=== PATIENT | male | born 1940 | race Caucasian/White ===

== ENCOUNTER 2023-07-25 13:56 | Inpatient (IN) ==
--- NOTE | 2023-07-25 14:19 | Emergency Department Note ---
ED Provider Note History of Present Illness Chief Complaint: Hip Pain Time Seen by Provider: 07/25/23 14:12 Source: patient Mode of arrival: EMS Limitations: no limitations This patient is an 83-year-old male who presents to the emergency department via ambulance for evaluation of an injury to his left hip. Patient reports that he was outside and tripped over a piece of wood and fell, landing on his left hip. He reports left hip pain and states he cannot walk on the leg. He does state that he struck his head but denies any head pain. Denies any other injuries. States that the fall was mechanical and not associated with any lightheadedness or dizziness. Denies any medical issues or history of orthopedic surgeries. He rates his current pain a 5/10. Home Medications Medication Instructions Recorded Confirmed Type simvastatin 80 mg tablet 80 mg PO DAILY 12/31/21 07/25/23 History tadalafil 20 mg tablet 20 mg PO DAILY PRN sexual activity 05/05/22 07/25/23 Rx #10 tabs Allergies Allergy/AdvReac Type Severity Reaction Status Date / Time No Known Allergies Allergy Unknown Verified 07/25/23 15:47 Past Med/Surg History Medical History Cervical spondylosis Stiff neck Cervical facet joint syndrome History of COVID-19 (06/2020) JUN 2020 Osteoarthritis Hyperlipidemia Surgical History H/O carpal tunnel repair R wrist History of cataract surgery BILAT Hx of inguinal hernia surgery (06/21/19) Right Open Recurrent Indirect Inguinal Hernia Repair with Mesh; Excision of Lipoma of the Cord Dr. Ham 06-21-19 History of tooth extraction History of tonsillectomy Family History Sister Colorectal cancer, Onset Age: 78 Brother Cancer Son Kidney disease Diabetes Father No problems noted. Mother No problems noted. Other Breast cancer Denies family history of Ovarian cancer Prostate cancer Myocardial infarction Social History Smoking Status: Never smoker Tobacco Type: Smokeless Tobacco (Dip or Chew) Age Started Using Tobacco: 14; Age Quit Using Tobacco: 28; Second Hand Exposure: No; Do You Dip or Chew Tobacco: No; Tobacco Cessation Education Requested by Patient: No Hx Alcohol Use: No Hx Substance Use: No Preferred Language: Latvian Communication Ability: Effective Visual Impairment: Limited Hearing Ability: Hard of Hearing Electrocardiograph Operator Required: No Beliefs That Will Affect Care: None marital status: / marital status details: previous passed around 2016 Current Living Situation: Spouse Current Living Situation Comment: Lives at home with current occupational status: retired current occupation: Owns [employer] How many Children do You have Comment: -not with current spouse Other Information That Helps Us Care for You: No Feels Safe at Home: Yes Safety Concerns: Feels Safe At This Time Childhood Exposure to Second-Hand Smoke: No Diet: regular Diet Comment: eats healthy, likes sweets caffeine: Yes (3 cups of coffee per day) during the past year weight has: remained stable Dental Care, Regularly: Yes Physical Activity Frequency: Daily Physical Activity Frequency Comment: has a garden, owns a [employer] Seatbelt Use: always Sunscreen Use: Yes Assistive Devices: Cane, Glasses and Walker Physical Exam Vital Signs Vital Signs - 24 hr 07/25/23 14:12 Temperature 36.6 C Temperature Source Temporal Artery Scan Pulse Rate 53 L Respiratory Rate 20 Respiratory Effort / Characteristics Non-Labored Respiratory Depth Normal Blood Pressure 124/88 Blood Pressure Mean 100 Pulse Oximetry 99 Oxygen Delivery Method Room Air Sepsis Recent Fever Within 48 Hours No Sepsis New/Unexplained Change in Mental Status No Sepsis Action Taken by Nursing No Action Required VITALS: Vitals are noted on the nurse's note and reviewed by myself. GENERAL: This is an 83-year-old male, in no acute distress, lying supine in bed, well-developed well-nourished. SKIN: No lacerations or abrasions HEAD: Normocephalic atraumatic. EYES: Pupils equal round and reactive to light and accommodation. Extraocular movements intact. MOUTH: Mucous membranes moist. NECK: Supple without nuchal rigidity. Cervical spine is nontender. HEART: Regular rate and rhythm without murmurs gallops or rubs. LUNGS: Clear to auscultation bilaterally without wheezes, rales or rhonchi. ABDOMEN: Positive bowel sounds x 4. Soft, nontender to palpation. MUSCULOSKELETAL: Slight shortening and external rotation of the left leg compared to the right. Tenderness to palpation of the lateral left hip. NEURO: Patient was alert and oriented to person place and time. Distal sensation intact of the left lower extremity. Course Administered Medications Fentanyl Citrate (Fentanyl Citrate Pf 100 Mcg/2 Ml Vial) 25 mcg IV Q5M PRN PRN Reason: PACU Use Only-Pain Stop: 07/26/23 23:37 Last Admin: 07/26/23 17:10 Dose: 25 mcg Documented By: Admin: 07/26/23 17:05 Dose: 25 mcg Documented By: Admin: 07/26/23 17:00 Dose: 25 mcg Documented By: Admin: 07/26/23 16:55 Dose: 25 mcg Documented By: MILADIS Hydromorphone HCl (Hydromorphone Inj 0.5 Mg/0.5 Ml Syr) 0.5 mg IV Q3H PRN PRN Reason: Pain (6,7,8,9,10) Stop: 08/08/23 20:21 Last Admin: 07/26/23 01:39 Dose: 0.5 mg Documented By: SOFIA Acetaminophen (Ofirmev) 1,000 mg in 100 mls @ 400 mls/hr IV Q8H PRN PRN Reason: pain, first line Stop: 07/28/23 20:21 Last Infusion: 07/26/23 01:00 Dose: Infused Documented By: Admin: 07/26/23 00:38 Dose: 400 mls/hr Documented By: SOFIA Lactated Ringer's (Lr) 1,000 mls @ 80 mls/hr IV .[id number] [facility] Stop: 07/26/23 21:21 Last Infusion: 07/26/23 19:53 Dose: Infused Documented By: Admin: 07/26/23 09:05 Dose: 80 mls/hr Documented By: Infusion: 07/26/23 09:05 Dose: Infused Documented By: Admin: 07/25/23 20:43 Dose: 80 mls/hr Documented By: SOFIA Sodium Chloride (Nss) 1,000 mls @ 80 mls/hr IV .[id number] [facility] Stop: 07/27/23 18:34 Last Admin: 07/26/23 17:44 Dose: 80 mls/hr Documented By: DK Discontinued Medications Acetaminophen (Acetaminophen 500 Mg Tab) 500 mg PO NOW STA Stop: 07/25/23 18:01 Last Admin: 07/25/23 18:38 Dose: 500 mg Documented By: CYRUS Bupivacaine HCl/Epinephrine Bitart (Bupivacaine/Epinephrine 0.5% Mpf 1:200,000 30 Ml Vial) Confirm Administered Dose 60 ml .ROUTE .STK-MED ONE Stop: 07/26/23 14:47 Last Admin: 07/26/23 16:19 Dose: 30 ml Documented By: KAREL Cefazolin Sodium (Ancef 2000mg) 2,000 mg in 15 mls @ 3.75 mls/min IV PREOP ONE; Protocol Stop: 07/26/23 14:21 Last Admin: 07/26/23 15:13 Dose: 3.75 mls/min Documented By: YANET Tranexamic Acid (Tranexamic Acid / 0.7% Nacl 1000mg/100ml Bag) Confirm Administered Dose 1,000 mg IV .STK-MED ONE Stop: 07/26/23 15:17 Last Admin: 07/26/23 15:19 Dose: 1,000 mg Documented By: YANET Medical Decision Making Differential Diagnosis Fracture, dislocation, neurovascular compromise, compartment syndrome, soft tissue injury, as well as other pathologies. Home Medications was personally reviewed by me Laboratory Data Attestation: I reviewed the patient's lab results. 07/26/23 07:16 07/26/23 07:16 Lab Results 07/25/23 07/25/23 Range/Units 14:30 15:05 WBC 10.35 (4.8-10.8) K/ul RBC 3.93 L (4.70-6.10) M/uL Hgb 12.9 L (14.0-18.0) g/dl Hct 37.8 L (42.0-52.0) % MCV 96.2 (80.0-100.0) fL MCH 32.8 (25.0-34.0) pg MCHC 34.1 (32.0-36.0) g/dL RDW Std Deviation 43.3 (36.4-46.3) fL RDW Coeff of Clarke 12.1 (11.5-14.5) % Plt Count 154 (130-400) K/uL MPV 10.4 (9.4-12.4) fL Immature Gran % (Auto) 0.3 % Neut % (Auto) 80.1 % Lymph % (Auto) 12.1 % Sharp % (Auto) 6.7 % Eos % (Auto) 0.2 % Baso % (Auto) 0.6 % Neut # (Auto) 8.30 H (1.40-6.50) K/uL Lymph # (Auto) 1.25 (1.20-3.40) K/uL Sharp # (Auto) 0.69 H (0.11-0.59) K/uL Eos # (Auto) 0.02 (0.00-0.50) K/uL Baso # (Auto) 0.06 (0.00-0.20) K/uL Immature Gran # (Auto) 0.03 (0.01-0.20) K/uL PT 10.9 (9.0-12.0) Seconds INR 1.0 (0.9-1.1) APTT 20 L (21-31) Seconds PTT Ratio 0.7 Sodium 137 (136-145) mmol/L Potassium 4.0 (3.5-5.1) mmol/L Chloride 102 (98-107) mmol/L Carbon Dioxide 28 (21-32) mmol/L Anion Gap 7 (3-11) BUN 19 (6-23) mg/dl Creatinine 0.71 (0.6-1.4) mg/dl Est Cr Clr Drug Dosing 78.5 ml/min Est GFR ( Amer) 99.2 ml/min Est GFR (Non-Af Amer) 85.6 ml/min BUN/Creatinine Ratio 26.8 H (10-20) Glucose 123 H (70-99(Fasting)) mg/dl Calcium 9.4 (8.6-10.3) mg/dl Total Bilirubin 0.6 (0.2-1.0) mg/dl AST 29 (13-39) U/L ALT 17 (7-52) U/L Alkaline Phosphatase 74 (34-104) U/L Total Protein 7.1 (6.0-8.3) gm/dl Albumin 4.2 (3.4-5.0) gm/dl Globulin 2.9 (2.5-4.0) gm/dl Albumin/Globulin Ratio 1.4 (0.9-2) Urine Color Yellow Urine Appearance Clear (Clear) Urine pH 7.0 (4.5-7.5) Ur Specific [place] 1.012 (1.000-1.030) Urine Protein Negative (Negative) Urine Glucose (UA) Negative (Negative) Urine Ketones Negative (Negative) Urine Blood Trace H (Negative) Urine Nitrite Negative (Negative) Urine Bilirubin Negative (Negative) Urine Urobilinogen Negative (Negative) Ur Leukocyte Esterase Negative (Negative) Urine WBC (Auto) 1-5 (0-5) /hpf Urine RBC (Auto) 0-4 (0-4) /hpf U Hyaline Cast (Auto) 0 (0-5) /lpf U Epithel Cells (Auto) 10-20 H (0-5) /lpf Urine Bacteria (Auto) Negative (Negative) Imaging Data Attestation: I personally reviewed and interpreted this imaging study as follows: Radiologist's Impression: Cervical Spine CT 07/25/23 14:17 CT cervical spine wo con CLINICAL HISTORY: fall, head injury TECHNIQUE: Multidetector row helical CT of the cervical spine was performed without administration of intravenous contrast. Coronal and sagittal reformations were obtained. Automated dose lowering techniques and/or adjustment according to patient size were utilized for this exam. Comparison: None available at the time of this dictation. FINDINGS: No acute fractures or subluxations are identified. Degenerative changes are seen in the visualized spine. The alignment is normal. Soft tissues are unremarkable. IMPRESSION: Degenerative changes without evidence of acute bony injury. ACT 112: Negative or not required by law. Electronically signed by: Lalo Guerrero M.D. 07/25/2023 2:[address] 07/25/23 14:17 CT head/brain wo con CLINICAL HISTORY: 83 years-old Male with fall, head injury. Acute head trauma status post fall TECHNIQUE: Multiple axial CT images of the head were obtained without contrast. A dose lowering technique was utilized adhering to the principles of ALARA. COMPARISON: CT cervical spine of same day FINDINGS: No acute intracranial hemorrhage, midline shift, intracranial mass, acute territorial ischemia or abnormal extra-axial collection. Involutional changes with chronic microvascular ischemic disease. Ventriculomegaly. Motion degraded exam. The calvarium is intact. Prior bilateral lens repair. Metallic density focus overlies the left mid humerus on the asphalt tile floor layer radiograph. The paranasal sinuses, mastoid air cells, and middle ear cavities are clear. IMPRESSION: No acute intracranial abnormality. ACT 112: Negative or not required by law. The above report was generated using voice recognition software. It may contain grammatical, syntax or spelling errors. Electronically signed by: Abebe Cedillo M.D. 07/25/2023 3:08 PM Hip X-Ray 07/25/23 14:17 XR hip LT min 2V CLINICAL HISTORY: left hip injury, fall COMPARISON: None FINDINGS: Note is made of an acute displaced left femoral neck fracture. Fracture is displaced approximately 1.5 cm. There is mild left hip osteoarthritis. No additional acute fractures are identified. IMPRESSION: Acute displaced left femoral neck fracture. ACT 112: Negative or not required by law. Electronically signed by: Godwin Marquez M.D. 07/25/2023 3:16 PM ECG Data Attestation: I personally reviewed and interpreted this ECG as follows: Indication: + other (preop) Rate (beats per minute): 57 Rhythm: + sinus bradycardia ECG Intervals/blocks: + First degree AV block ECG ST segments: + Nonspecific ST abnormalities MDM Narrative Continuous monitoring manager: Order was placed for continuous monitoring manager. Patient was placed on the monitoring manager. Patient was noted to be in normal sinus rhythm at an initial rate of 70 bpm. This patient is an 83-year-old male who presents to the emergency department for evaluation after a mechanical fall. Patient was found to have a femoral neck fracture. He declined any analgesics while in the emergency department. Further preoperative workup was ordered. Attempted to contact on-call orthopedics, however I was unable to reach anyone as they were in the OR. I discussed the case with the [facility], who agreed to evaluate the patient for admission. They were able to discuss with orthopedics on-call as well. The patient's case was discussed with Dr. Cherry, who agreed with my evaluation and treatment plan. Impression Fracture of femoral neck, left Discharge Plan Visit Data Chief Complaint: Hip Pain ED Provider: Robi Cherry ED Midlevel Provider: Carmen Khan Discharge Problem: Fracture of femoral neck, left Patient Disposition: Admitted As Inpatient Discharge Instructions Interventions: ED Discharge Assessment Last Done: 07/25/23 20:25 Discharge Problem: Fracture of femoral neck, left Qualifiers: Encounter type: initial encounter Fracture type: closed Qualified Code(s): S 72.002A - Fracture of unspecified part of neck of left femur, initial encounter for closed fracture
[2023-07-25 14:47] LABS: Basophils # (auto) 0.06 K/uL (0.00-0.20); Basophils % (auto) 0.6 %; Eosinophils # (auto) 0.02 K/uL (0.00-0.50); Eosinophils % (auto) 0.2 %; Hematocrit (blood only) 37.8 % (42.0-52.0); Hemoglobin 12.9 g/dl (14.0-18.0); Immature Granulocytes # (auto) 0.03 K/uL (0.01-0.20); Immature Granulocytes % (auto) 0.3 %; Lymphocytes # (auto) 1.25 K/uL (1.20-3.40); Lymphocytes % (auto) 12.1 %; Mean Corpuscular Hemoglobin 32.8 pg (25.0-34.0); Mean Corpuscular Hgb Conc 34.1 g/dL (32.0-36.0); Mean Corpuscular Volume 96.2 fL (80.0-100.0); Mean Platelet Volume 10.4 fL (9.4-12.4); Monocytes # (auto) 0.69 K/uL (0.11-0.59); Monocytes % (auto) 6.7 %; Neutrophils % (auto) 80.1 %; Platelet Count 154 K/uL (130-400); RDW Coefficient of Variation 12.1 % (11.5-14.5); RDW Standard Deviation 43.3 fL (36.4-46.3); Red Blood Count 3.93 M/uL (4.70-6.10); White Blood Count 10.35 K/ul (4.8-10.8)
--- NOTE | 2023-07-25 15:00 | CT Scan Report ---
CT cervical spine wo con CLINICAL HISTORY: fall, head injury TECHNIQUE: Multidetector row helical CT of the cervical spine was performed without administration of intravenous contrast. Coronal and sagittal reformations were obtained. Automated dose lowering techn iques and/or adjustment according to patient size were utilized for this exam. Comparison: None available at the time of this dictation. FINDINGS: No acute fractures or subluxations are identified. Degenerative changes are seen in the visualized sp ine. The alignment is normal. Soft tissues are unremarkable. IMPRESSION: Degenerative changes without evidence of acute bony injury. ACT 112: Negative or not required by law. Electronically signed by: Lalo Guerrero M.D. 07/25/2023 2:59 PM
[2023-07-25 15:04] LABS: Albumin Globulin Ratio 1.4 (0.9-2); Albumin Level 4.2 gm/dl (3.4-5.0); BUN Creatinine Ratio 26.8 (10-20); Bilirubin,Total 0.6 mg/dl (0.2-1.0); Calcium 9.4 mg/dl (8.6-10.3); Creatinine Clr Calc Pharmacy 78.5 ml/min; Est GFR (African American) 99.2 ml/min; Est GFR (Non-African American) 85.6 ml/min; Globulin 2.9 gm/dl (2.5-4.0); Total Protein 7.1 gm/dl (6.0-8.3)
--- NOTE | 2023-07-25 15:09 | CT Scan Report ---
CT head/brain wo con CLINICAL HISTORY: 83 years-old Male with fall, head injury. Acute head trauma status post fall TECHNIQUE: Multiple axial CT images of the head were obtained without contrast. A dose lowering tech nique was utilized adhering to the principles of ALARA. COMPARISON: CT cervical spine of same day FINDINGS: No acute intracranial hemorrhage, midline shift, intracranial mass, acute territorial ischemia or abn ormal extra-axial collection. Involutional changes with chronic microvascular ischemic disease. Ventr iculomegaly. Motion degraded exam. The calvarium is intact. Prior bilateral lens repair. Metallic density focus overlies the left mid hu merus on the rehabilitation tech radiograph. The paranasal sinuses, mastoid air cells, and middle ear cavities are clear. IMPRESSION: No acute intracranial abnormality. ACT 112: Negative or not required by law. The above report was generated using voice recognition software. It may contain grammatical, syntax o r spelling errors. Electronically signed by: Abebe Cedillo M.D. 07/25/2023 3:08 PM
[2023-07-25 15:13] LABS: Partial Thromboplastin Ratio 0.7; Partial Thromboplastin Time 20 Seconds (21-31); Prothrombin Time 10.9 Seconds (9.0-12.0)
--- NOTE | 2023-07-25 15:15 | Emergency Department Note ---
ED Visit Note I was consulted by the Advanced Practice Provider, Nancie Khan PA-C. I personally made/approved the management plan and take responsibility for the patient management. I performed a substantive portion of the visit. This includes the aspects of: -History/Physical/Personally seeing the patient -MDM -I independently interpreted the following studies: X-ray of the left hip was obtained in the emergency department. My interpretation is subcapital fracture, final report in the chart. .
--- NOTE | 2023-07-25 15:17 | XRay Report ---
XR hip LT min 2V CLINICAL HISTORY: left hip injury, fall COMPARISON: None FINDINGS: Note is made of an acute displaced left femoral neck fracture. Fracture is displaced appro ximately 1.5 cm. There is mild left hip osteoarthritis. No additional acute fractures are identified. IMPRESSION: Acute displaced left femoral neck fracture. ACT 112: Negative or not required by law. Electronically signed by: Godwin Marquez M.D. 07/25/2023 3:16 PM
[2023-07-25 15:21] LABS: Appearance Urine Clear (Clear); Bacteria Urine Automated Negative (Negative); Bilirubin Urine Negative (Negative); Blood Urine Trace (Negative); Cast Urine Automated 0 /lpf (0-5); Color Urine Yellow; Glucose Urine UA Negative (Negative); Ketones Urine Negative (Negative); Leukocyte Esterase Urine Negative (Negative); Nitrite Urine Negative (Negative); Protein Urine Negative (Negative); RBC Urine Automated 0-4 /hpf (0-4); Specific Gravity Urine 1.012 (1.000-1.030); Urobilinogen Urine Negative (Negative)
--- NOTE | 2023-07-25 16:17 | History & Physical Report ---
Date of Service July 25, 2023 Assessment & Plan (1) Closed left hip fracture: Plan: Left hip fracture Ortho consulted Mechanical fall, no syncope/presyncope/cardiac arrhythmia contributing to his fall Patient is not on blood thinners Nonweightbearing/bedrest pending surgery N.p.o. CThead was negative, CTC-spine negative No history of CHF, no volume overload, no pretreat with insulin, renal function is normal and at baseline at time of admission. RCRI class I risk 3.9% 30-day risk of /MT/arrest; no optimize blood risk factors at this time. Recommend proceeding to surgical repair as recommended/clinically indicated -Marks in place draining light yellow urine. IV FM 80 cc/h Tylenol first-line for pain control, hydromorphone second-line/breakthrough. Narcan available on-call for sedation/narcosis Plan Chronic stable issues Hyperlipidemia: Continue statin DVT prophylaxis: SCDs, pharmacal prophylaxis deferred in the setting of an acute fracture Diet: N.p.o. Disposition: Medical/surgical CODE STATUS:DNR/DNI History of Present Illness Primary Care Provider: Diana Robin DO Freddy is an 83-year-old male with past medical history of cervical spondylosis, osteoarthritis, and hyperlipidemia who presented to the ER after he tripped over a piece of wood causing him to strike his left hip with immediate pain and inability to bear weight. No chest pain, chest pressure, syncope, or presyncope that caused him to fall. Head/neck CT are normal he did not lose consciousness. Hip x-ray shows a acute displaced left femoral neck fracture with 1.5 cm of displacement. Freddy is seen at the bedside. He reports he slipped over a piece of wood and fell striking his left hip and the side of his left head. He has no headache and did not lose consciousness. He is not on blood thinners. He reports other than high cholesterol for which she takes a cholesterol medicine he has no medical problems. No history of heart disease or angina, and is normally active without any chest pain or shortness of breath. No history of tobacco or alcohol use. No kidney disease. He has not had any lightheadedness/dizziness/syncopal/presyncopal symptoms. He reports his pain is around a 5/10 at time of bedside assessment, tolerable at rest but has immediate pain with any attempted movement. Reviewed resuscitation with patient and his ; patient reports that in the event of a complete cardiac or pulmonary arrest he would not want resuscitation and would prefer to be DNR/DNI status but is aware that this may be temporarily reversed intraoperatively. No other questions or concerns at bedside Denies medication allergies, no substance use, DNR/DNI. Admitted to medical/ surgical Allergies Allergy/AdvReac Type Severity Reaction Status Date / Time No Known Allergies Allergy Unknown Verified 07/25/23 15:47 Home Medications Medication Instructions Recorded Confirmed Type simvastatin 80 mg tablet 80 mg PO DAILY 12/31/21 07/25/23 History tadalafil 20 mg tablet 20 mg PO DAILY PRN sexual activity 05/05/22 07/25/23 Rx #10 tabs Past Med/Surg History Medical History Cervical spondylosis Stiff neck Cervical facet joint syndrome History of COVID-19 (06/2020) JUN 2020 Osteoarthritis Hyperlipidemia Surgical History H/O carpal tunnel repair R wrist History of cataract surgery BILAT Hx of inguinal hernia surgery (06/21/19) Right Open Recurrent Indirect Inguinal Hernia Repair with Mesh; Excision of Lipoma of the Cord Dr. Ham 06-21-19 History of tooth extraction History of tonsillectomy Family History Sister Colorectal cancer, Onset Age: 78 Brother Cancer Son Kidney disease Diabetes Father No problems noted. Mother No problems noted. Other Breast cancer Denies family history of Ovarian cancer Prostate cancer Myocardial infarction Social History Smoking Status: Never smoker Tobacco Type: Smokeless Tobacco (Dip or Chew) Age Started Using Tobacco: 14; Age Quit Using Tobacco: 28; Second Hand Exposure: No; Do You Dip or Chew Tobacco: No; Hx Alcohol Use: No Hx Substance Use: No Preferred Language: Faroese Communication Ability: Effective Visual Impairment: Limited Hearing Ability: Hard of Hearing Cobbler Mckay Required: No Beliefs That Will Affect Care: None marital status: / marital status details: previous passed around 2016 Current Living Situation: Spouse Current Living Situation Comment: lives w/ spouse current occupational status: retired current occupation: Owns [employer] How many Children do You have Comment: -not with current spouse Feels Safe at Home: Yes Childhood Exposure to Second-Hand Smoke: No Diet: regular Diet Comment: eats healthy, likes sweets caffeine: Yes (3 cups of coffee per day) during the past year weight has: remained stable Dental Care, Regularly: Yes Physical Activity Frequency: Daily Physical Activity Frequency Comment: has a garden, owns a [employer] Seatbelt Use: always Sunscreen Use: Yes Assistive Devices: Glasses Physical Exam Physical Exam: General: A&Ox3. NAD. Cooperative. HEENT: Atraumatic, normocephalic. Vision/hearing intact pupils equal and reactive to light Pulm: CTAB A&P. -wheezes, -rales, -rhonchi. Symmetrical chest rise. No increased work of breathing. No respiratory distress. Cardiac: RRR, intermittently bradycardic at rest,-mrg. Radial pulses intact and symmetrical. Abdominal: Nontender, nondistended, soft. BS present. : Marks in place Ext: Left hip slightly externally rotated and shortened. Tender palpation at the left hip. Sensation soft touch in feet intact bilaterally without asymmetry, PT pulse intact bilaterally without asymmetry, ankle dorsiflexion/plantarflexion is intact bilaterally. No signs of neurovascular compromise Results & Data Results & Data Vital Signs (Past 12 Hours) Vital Signs Temp Pulse Resp BP Pulse Ox O2 Del Method 07/25/23 14:12 36.6 C 53 L 20 124/88 99 Room Air PG Care Time/CCT Total # of Minutes Spent Total Time Spent with Patient: Total time spent is greater than 50% in coordination of care (as documented) at patient's floor/unit and/or counseling patient: Coding Level of Care Code 97247 INT INP/OBS CARE 2MIN Diagnoses Closed left hip fracture S72.002A
--- NOTE | 2023-07-25 16:44 | Electrocardiogram Report ---
Test Reason : Blood Pressure : / mmHG Vent. Rate : 057 BPM Atrial Rate : 057 BPM P-R Int : 220 ms QRS Dur : 118 ms QT Int : 464 ms P-R-T Axes : 063 -24 063 degrees QTc Int : 451 ms Sinus bradycardia with 1st degree A-V block Non-specific intra-ventricular conduction delay Minimal voltage criteria for LVH, may be normal variant Nonspecific ST and T wave abnormality Abnormal ECG When compared with ECG of 12-JAN-2021 13:47, Nonspecific T wave abnormality, worse in Lateral leads Confirmed by Jerod Hermosillo ([id number]) on 07/25/2023 4:43:37 PM Referred By: Confirmed By:James Hermosillo
[2023-07-25] MEDS ORDERED: ACETAMINOPHEN 500 MG TAB PO STA (18:00)
[2023-07-25] MEDS ORDERED: ACETAMINOPHEN 1,000 MG/100 ML VIAL IV PRN (20:22)
[2023-07-25] MEDS ORDERED: MAGNESIUM HYDROXIDE SUSP 30 ML UDC PO PRN (20:22)
[2023-07-25] MEDS ORDERED: bisacodyL 10 MG SUPP PR PRN (20:22)
[2023-07-25] MEDS ORDERED: HYDROmorphone INJ 0.5 MG/0.5 ML SYR IV PRN (20:22)
[2023-07-25] MEDS ORDERED: NALOXONE HCL 0.4 MG/1 ML VIAL/CARP IV PRN (20:22)
[2023-07-25] MEDS: LACTATED RINGER'S 1,000 ML IV SCH (20:43)
[2023-07-26] MEDS: HYDROmorphone INJ 0.5 MG/0.5 ML SYR IV PRN (01:39)
[2023-07-26 08:03] LABS: BUN Creatinine Ratio 21.4 (10-20); Creatinine Clr Calc Pharmacy 79.7 ml/min; Est GFR (African American) 99.7 ml/min; Est GFR (Non-African American) 86.1 ml/min; Potassium 3.8 mmol/L (3.5-5.1)
[2023-07-26 08:15] LABS: Basophils # (auto) 0.04 K/uL (0.00-0.20); Basophils % (auto) 0.5 %; Eosinophils # (auto) 0.01 K/uL (0.00-0.50); Eosinophils % (auto) 0.1 %; Hematocrit (blood only) 33.1 % (42.0-52.0); Hemoglobin 11.6 g/dl (14.0-18.0); Immature Granulocytes # (auto) 0.02 K/uL (0.01-0.20); Immature Granulocytes % (auto) 0.3 %; Lymphocytes # (auto) 1.89 K/uL (1.20-3.40); Lymphocytes % (auto) 24.3 %; Mean Corpuscular Hemoglobin 32.6 pg (25.0-34.0); Mean Platelet Volume 10.7 fL (9.4-12.4); Monocytes # (auto) 0.87 K/uL (0.11-0.59); Monocytes % (auto) 11.2 %; Neutrophils # (auto) 4.95 K/uL (1.40-6.50); Neutrophils % (auto) 63.6 %; Platelet Count 132 K/uL (130-400); RDW Coefficient of Variation 12.2 % (11.5-14.5); RDW Standard Deviation 42.1 fL (36.4-46.3); Red Blood Count 3.56 M/uL (4.70-6.10); White Blood Count 7.78 K/ul (4.8-10.8)
--- NOTE | 2023-07-26 08:51 | Hospitalist Progress Note ---
Date of Service July 26, 2023 Assessment & Plan (1) Closed left hip fracture: Plan: Mechanical fall, no syncope/presyncope/cardiac arrhythmia contributing to his fall as tripped over wood trying to get for heating his home. CT head/cervical spine negative Imaging noting acute displaced LEFT femoral neck fracture. * No history of CHF, no volume overload, no pretreat with insulin, renal function is normal and at baseline at time of admission. RCRI class I risk 3.9% 30-day risk of /PA/arrest; no optimize blood risk factors at this time. Recommend proceeding to surgical repair as recommended/clinically indicated Orthopedics consulted NPO this morning for surgery this afternoon IVF while NPO for maintenance Dykes in place Pain control, antiemetics prn -Tylenol, Dilaudid available. Will ensure PO option available following s urgery/able to take PO Bowel regimen to be added following surgery DVT proph: SCDs for now, no chemo proph as planning for surgery this afternoon. Chemoproph following per orthopedic decision Monitor labs in AM PT/OT evals to be undertaken, likely need for short term rehab Chronic problems Hyperlipidemia -will resume statin for AM - takes lipitor 80mg daily Plan CODE STATUS:DNR/DNI NPO for OR this afternoon, therapy evals following Admission and Anticipated Discharge Date Admission Date: July 25, 2023 Supervising Physician Co-Signing Physician Notes The patient was not seen by me. The chart was reviewed. Case discussed with MACKENZIE Kenyon. Agree with assessment and plan Subjective Eval this morning, fell tripping over wood as he was bringing it in, didn't see the one piece. Saw orthopedics this morning, planning for surgery. Pain controlled at present time. No fever/chills, chest pain, shortness of breath. Discussed obtaining therapy evaluations after surgery and will monitor progress to see if any rehab required. Questions/concerns addressed at this time. Physical Exam Physical Exam: General: 83yo male resting in bed, at bedside, NAD, reports seen by orthopedics this morning Head: atraumatic, normocephalic, mmm, trachea midline Resp: even, unlabored, no w/c/r, on room air CV: RRR/slightly bradycardic to 50s, no significant mrg, no pitting edema/calf tenderness, cap refill wnl GI: +BS, soft/NT : dykes in place MSK/Neuro: LLE hip w/ external rotation, slightly shortened, tenderness to palpation L hip, sensation intact, pulses palpable, cap refill wnl abrasion to medial aspect L knee, no surrounding erythema/cellulitis Psych: AOx3, cooperative with exam Results & Data Results & Data Vital Signs (Past 12 Hours) Vital Signs Temp Pulse Resp BP BP Pulse Ox O2 Del Method 07/26/23 07:43 36.7 C 62 15 115/73 96 Room Air 07/26/23 07:33 36.7 C 51 L 15 153/71 H 97 Room Air Laboratory Results 07/26/23 07/25/23 07/25/23 Range/Units 07:16 20:15 15:05 WBC 7.78 (4.8-10.8) K/ul RBC 3.56 L (4.70-6.10) M/uL Hgb 11.6 L (14.0-18.0) g/dl Hct 33.1 L (42.0-52.0) % MCV 93.0 (80.0-100.0) fL MCH 32.6 (25.0-34.0) pg MCHC 35.0 (32.0-36.0) g/dL RDW Std Deviation 42.1 (36.4-46.3) fL RDW Coeff of Clarke 12.2 (11.5-14.5) % Plt Count 132 (130-400) K/uL MPV 10.7 (9.4-12.4) fL Immature Gran % (Auto) 0.3 % Neut % (Auto) 63.6 % Lymph % (Auto) 24.3 % Hanson % (Auto) 11.2 % Eos % (Auto) 0.1 % Baso % (Auto) 0.5 % Neut # (Auto) 4.95 (1.40-6.50) K/uL Lymph # (Auto) 1.89 (1.20-3.40) K/uL Hanson # (Auto) 0.87 H (0.11-0.59) K/uL Eos # (Auto) 0.01 (0.00-0.50) K/uL Baso # (Auto) 0.04 (0.00-0.20) K/uL Immature Gran # (Auto) 0.02 (0.01-0.20) K/uL PT (9.0-12.0) Seconds INR (0.9-1.1) APTT (21-31) Seconds PTT Ratio Sodium 133 L (136-145) mmol/L Potassium 3.8 (3.5-5.1) mmol/L Chloride 101 (98-107) mmol/L Carbon Dioxide 27 (21-32) mmol/L Anion Gap 5 (3-11) BUN 15 (6-23) mg/dl Creatinine 0.70 (0.6-1.4) mg/dl Est Cr Clr Drug Dosing 79.7 ml/min Est GFR ( Amer) 99.7 ml/min Est GFR (Non-Af Amer) 86.1 ml/min BUN/Creatinine Ratio 21.4 H (10-20) Glucose 107 H (70-99(Fasting)) mg/dl Calcium 9.0 (8.6-10.3) mg/dl Total Bilirubin (0.2-1.0) mg/dl AST (13-39) U/L ALT (7-52) U/L Alkaline Phosphatase (34-104) U/L Total Protein (6.0-8.3) gm/dl Albumin (3.4-5.0) gm/dl Globulin (2.5-4.0) gm/dl Albumin/Globulin Ratio (0.9-2) Urine Color Yellow Urine Appearance Clear (Clear) Urine pH 7.0 (4.5-7.5) Ur Specific Ridgeley 1.012 (1.000-1.030) Urine Protein Negative (Negative) Urine Glucose (UA) Negative (Negative) Urine Ketones Negative (Negative) Urine Blood Trace H (Negative) Urine Nitrite Negative (Negative) Urine Bilirubin Negative (Negative) Urine Urobilinogen Negative (Negative) Ur Leukocyte Esterase Negative (Negative) Urine WBC (Auto) 1-5 (0-5) /hpf Urine RBC (Auto) 0-4 (0-4) /hpf U Hyaline Cast (Auto) 0 (0-5) /lpf U Epithel Cells (Auto) 10-20 H (0-5) /lpf Urine Bacteria (Auto) Negative (Negative) Blood Type A Negative Antibody Screen NEGATIVE 07/25/23 Range/Units 14:30 WBC 10.35 (4.8-10.8) K/ul RBC 3.93 L (4.70-6.10) M/uL Hgb 12.9 L (14.0-18.0) g/dl Hct 37.8 L (42.0-52.0) % MCV 96.2 (80.0-100.0) fL MCH 32.8 (25.0-34.0) pg MCHC 34.1 (32.0-36.0) g/dL RDW Std Deviation 43.3 (36.4-46.3) fL RDW Coeff of Clarke 12.1 (11.5-14.5) % Plt Count 154 (130-400) K/uL MPV 10.4 (9.4-12.4) fL Immature Gran % (Auto) 0.3 % Neut % (Auto) 80.1 % Lymph % (Auto) 12.1 % Hanson % (Auto) 6.7 % Eos % (Auto) 0.2 % Baso % (Auto) 0.6 % Neut # (Auto) 8.30 H (1.40-6.50) K/uL Lymph # (Auto) 1.25 (1.20-3.40) K/uL Hanson # (Auto) 0.69 H (0.11-0.59) K/uL Eos # (Auto) 0.02 (0.00-0.50) K/uL Baso # (Auto) 0.06 (0.00-0.20) K/uL Immature Gran # (Auto) 0.03 (0.01-0.20) K/uL PT 10.9 (9.0-12.0) Seconds INR 1.0 (0.9-1.1) APTT 20 L (21-31) Seconds PTT Ratio 0.7 Sodium 137 (136-145) mmol/L Potassium 4.0 (3.5-5.1) mmol/L Chloride 102 (98-107) mmol/L Carbon Dioxide 28 (21-32) mmol/L Anion Gap 7 (3-11) BUN 19 (6-23) mg/dl Creatinine 0.71 (0.6-1.4) mg/dl Est Cr Clr Drug Dosing 78.5 ml/min Est GFR ( Amer) 99.2 ml/min Est GFR (Non-Af Amer) 85.6 ml/min BUN/Creatinine Ratio 26.8 H (10-20) Glucose 123 H (70-99(Fasting)) mg/dl Calcium 9.4 (8.6-10.3) mg/dl Total Bilirubin 0.6 (0.2-1.0) mg/dl AST 29 (13-39) U/L ALT 17 (7-52) U/L Alkaline Phosphatase 74 (34-104) U/L Total Protein 7.1 (6.0-8.3) gm/dl Albumin 4.2 (3.4-5.0) gm/dl Globulin 2.9 (2.5-4.0) gm/dl Albumin/Globulin Ratio 1.4 (0.9-2) Urine Color Urine Appearance (Clear) Urine pH (4.5-7.5) Ur Specific [place] (1.000-1.030) Urine Protein (Negative) Urine Glucose (UA) (Negative) Urine Ketones (Negative) Urine Blood (Negative) Urine Nitrite (Negative) Urine Bilirubin (Negative) Urine Urobilinogen (Negative) Ur Leukocyte Esterase (Negative) Urine WBC (Auto) (0-5) /hpf Urine RBC (Auto) (0-4) /hpf U Hyaline Cast (Auto) (0-5) /lpf U Epithel Cells (Auto) (0-5) /lpf Urine Bacteria (Auto) (Negative) Blood Type Antibody Screen Diagnostic Findings Cervical Spine CT 07/25/23 14:17 CT cervical spine wo con CLINICAL HISTORY: fall, head injury TECHNIQUE: Multidetector row helical CT of the cervical spine was performed without administration of intravenous contrast. Coronal and sagittal reformations were obtained. Automated dose lowering techniques and/or adjustment according to patient size were utilized for this exam. Comparison: None available at the time of this dictation. FINDINGS: No acute fractures or subluxations are identified. Degenerative changes are seen in the visualized spine. The alignment is normal. Soft tissues are unremarkable. IMPRESSION: Degenerative changes without evidence of acute bony injury. ACT 112: Negative or not required by law. Electronically signed by: Lalo Guerrero M.D. 07/25/2023 2:[address] 07/25/23 14:17 CT head/brain wo con CLINICAL HISTORY: 83 years-old Male with fall, head injury. Acute head trauma status post fall TECHNIQUE: Multiple axial CT images of the head were obtained without contrast. A dose lowering technique was utilized adhering to the principles of ALARA. COMPARISON: CT cervical spine of same day FINDINGS: No acute intracranial hemorrhage, midline shift, intracranial mass, acute territorial ischemia or abnormal extra-axial collection. Involutional changes with chronic microvascular ischemic disease. Ventriculomegaly. Motion degraded exam. The calvarium is intact. Prior bilateral lens repair. Metallic density focus overlies the left mid humerus on the entry level finance radiograph. The paranasal sinuses, mastoid air cells, and middle ear cavities are clear. IMPRESSION: No acute intracranial abnormality. ACT 112: Negative or not required by law. The above report was generated using voice recognition software. It may contain grammatical, syntax or spelling errors. Electronically signed by: Abebe Cedillo M.D. 07/25/2023 3:08 PM Hip X-Ray 07/25/23 14:17 XR hip LT min 2V CLINICAL HISTORY: left hip injury, fall COMPARISON: None FINDINGS: Note is made of an acute displaced left femoral neck fracture. Fracture is displaced approximately 1.5 cm. There is mild left hip os teoarthritis. No additional acute fractures are identified. IMPRESSION: Acute displaced left femoral neck fracture. ACT 112: Negative or not required by law. Electronically signed by: Godwin Marquez M.D. 07/25/2023 3:16 PM PG Care Time/CCT Total # of Minutes Spent Total Time Spent with Patient: Total time spent is greater than 50% in coordination of care (as documented) at patient's floor/unit and/or counseling patient: Coding Level of Care Code 12678 SUB INP/OBS CARE 2/35MIN Diagnoses Closed left hip fracture S72.002A
[2023-07-26] MEDS: LACTATED RINGER'S 1,000 ML IV SCH (09:05)
--- NOTE | 2023-07-26 11:04 | Orthopedic Consultation ---
Date of Service July 26, 2023 Assessment & Plan (1) Closed left hip fracture: I had a long and detailed discussion today with the patient about his left hip pathology. He had ample amount of time to ask any questions or state any concerns. All questions and concerns were answered to the patient's satisfac tion. At this point, his left hip fracture will require surgical intervention to get him back to his livable state. Bipolar hemiarthroplasty was discussed with the patient with the risk, benefits, and alternatives discussed with full in great detail. Patient verbalized understanding and wishes to proceed with surgical intervention. He is currently scheduled to proceed with surgical intervention later this afternoon with Dr. Nettles. He should remain n.p.o. at this point. Postoperative expectations were discussed with the patient as well. Will proceed with surgical fixation later this afternoon. Patient was seen and examined by myself and Dr. Boone Nettles. The patient is got a displaced left femoral neck fracture. No pre-existing hip pain. We discussed treatment options there were elected proceed with a left cemented bipolar hip arthroplasty. The risks Mente this procedure explained in depth and the patient understands and desires to proceed. Informed consent was obtained. History of Present Illness Reason for Consultation: . Left displaced femoral neck fracture. Requesting Physician: . Attending Physician: Michael Diehl MD . Freddy is an 83-year-old gentleman who we are asked to see in consultation today due to a left displaced femoral neck fracture. He states that yesterday evening, he was unloading wood out of his truck whenever he slipped over a piece of wood falling straight on his left hip. He had immediate onset of left hip pain and was unable to ambulate. He was transferred to [facility] emergency department where an x-ray was done which found the displaced left femoral neck fracture. Today, he states that his pain is well-controlled as long as he does not move the left lower extremity. He notes that his pain is pretty localized at this point to the left hip. He denies any other issues today. He is not on any anticoagulation. Allergies Allergy/AdvReac Type Severity Reaction Status Date / Time No Known Allergies Allergy Unknown Verified 07/25/23 15:47 Home Medications Medication Instructions Recorded Confirmed Type simvastatin 80 mg tablet 80 mg PO DAILY 12/31/21 07/25/23 History tadalafil 20 mg tablet 20 mg PO DAILY PRN sexual activity 05/05/22 07/25/23 Rx #10 tabs Past Med/Surg History Medical History Cervical spondylosis Stiff neck Cervical facet joint syndrome History of COVID- (06/2020) JUN 2020 Osteoarthritis Hyperlipidemia Surgical History H/O carpal tunnel repair R wrist History of cataract surgery BILAT Hx of inguinal hernia surgery (06/21/19) Right Open Recurrent Indirect Inguinal Hernia Repair with Mesh; Excision of Lipoma of the Cord Dr. Ham 06-21-19 History of tooth extraction History of tonsillectomy Family History Sister Colorectal cancer, Onset Age: 78 Brother Cancer Son Kidney disease Diabetes Father No problems noted. Mother No problems noted. Other Breast cancer Denies family history of Ovarian cancer Prostate cancer Myocardial infarction Social History Smoking Status: Never smoker Tobacco Type: Smokeless Tobacco (Dip or Chew) Age Started Using Tobacco: 14; Age Quit Using Tobacco: 28; Second Hand Exposure: No; Do You Dip or Chew Tobacco: No; Tobacco Cessation Education Requested by Patient: No Hx Alcohol Use: No Hx Substance Use: No Preferred Language: Kinyarwanda Communication Ability: Effective Visual Impairment: Limited Hearing Ability: Hard of Hearing Nurse Technician Required: No Beliefs That Will Affect Care: None marital status: / marital status details: previous passed around 2016 Current Living Situation: Spouse Current Living Situation Comment: Lives at home with current occupational status: retired current occupation: Owns [email or web address] How many Children do You have Comment: -not with current spouse Other Information That Helps Us Care for You: No Feels Safe at Home: Yes Safety Concerns: Feels Safe At This Time Childhood Exposure to Second-Hand Smoke: No Diet: regular Diet Comment: eats healthy, likes sweets caffeine: Yes (3 cups of coffee per day) during the past year weight has: remained stable Dental Care, Regularly: Yes Physical Activity Frequency: Daily Physical Activity Frequency Comment: has a garden, owns a [employer] Seatbelt Use: always Sunscreen Use: Yes Assistive Devices: Cane, Glasses and Walker Review of Systems All systems reviewed & are unremarkable except as noted in HPI & below. Physical Exam . General: A&Ox3. NAD. Cooperative. HEENT: Atraumatic, normocephalic. Vision/hearing intact pupils equal and reactive to light Pulm: CTAB A&P. -wheezes, -rales, -rhonchi. Symmetrical chest rise. No increased work of breathing. No respiratory distress. Cardiac: RRR, intermittently bradycardic at rest,-mrg. Radial pulses intact and symmetrical. Abdominal: Nontender, nondistended, soft. BS present. : Marks in place Musculoskeletal On physical examination of the left hip, his left leg is slightly shortened with external rotation. Slight discomfort with palpation diffusely throughout the left hip joint. Limited range of motion secondary to discomfort. Active plantarflexion dorsiflexion to the left ankle. +2 DP and PT pulses. Less than 2-second capillary refill. Normal sensation. Neurovascular intact. Results & Data Results & Data Laboratory Results . Diagnostic Findings . Cervical Spine CT 07/25/23 14:17 CT cervical spine wo con CLINICAL HISTORY: fall, head injury TECHNIQUE: Multidetector row helical CT of the cervical spine was performed without administration of intravenous contrast. Coronal and sagittal reformations were obtained. Automated dose lowering techniques and/or adjustment according to patient size were utilized for this exam. Comparison: None available at the time of this dictation. FINDINGS: No acute fractures or subluxations are identified. Degenerative changes are seen in the visualized spine. The alignment is normal. Soft tissues are unremarkable. IMPRESSION: Degenerative changes without evidence of acute bony injury. ACT 112: Negative or not required by law. Electronically signed by: Lalo Guerrero M.D. 07/25/2023 2:[address] 07/25/23 14:17 CT head/brain wo con CLINICAL HISTORY: 83 years-old Male with fall, head injury. Acute head trauma status post fall TECHNIQUE: Multiple axial CT images of the head were obtained without contrast. A dose lowering technique was utilized adhering to the principles of ALARA. COMPARISON: CT cervical spine of same day FINDINGS: No acute intracranial hemorrhage, midline shift, intracranial mass, acute territorial ischemia or abnormal extra-axial collection. Involutional changes with chronic microvascular ischemic disease. Ventriculomegaly. Motion degraded exam. The calvarium is intact. Prior bilateral lens repair. Metallic density focus overlies the left mid humerus on the literacy coach radiograph. The paranasal sinuses, mastoid air cells, and middle ear cavities are clear. IMPRESSION: No acute intracranial abnormality. ACT 112: Negative or not required by law. The above report was generated using voice recognition software. It may contain grammatical, syntax or spelling errors. Electronically signed by: Abebe Cedillo M.D. 07/25/2023 3:08 PM Hip X-Ray 07/25/23 14:17 XR hip LT min 2V CLINICAL HISTORY: left hip injury, fall COMPARISON: None FINDINGS: Note is made of an acute displaced left femoral neck fracture. Fracture is displaced approximately 1.5 cm. There is mild left hip osteoarthritis. No additional acute fractures are identified. IMPRESSION: Acute displaced left femoral neck fracture. ACT 112: Negative or not required by law. Electronically signed by: Godwin Marquez M.D. 07/25/2023 3:16 PM PG Care Time/CCT Total # of Minutes Spent Total Time Spent with Patient: Total time spent is greater than 50% in coordination of care (as documented) at patient's floor/unit and/or counseling patient: Coding Level of Care Code 04117 IN/OBS CONSULT LVL 3,45M Diagnoses Closed fracture of left hip, initial encounter S72.002A Encounter type: initial encounter Additional Codes Fx Hip/Femur - Proximal femur/neck: Proximal femur/neck ([id number]) (1) Closed left hip fracture Encounter type: initial encounter Qualified Code(s): S72.002A - Fracture of unspecified part of neck of left femur, initial encounter for closed fracture
--- NOTE | 2023-07-26 13:10 | History & Physical Bridge Note ---
Date of Service July 26, 2023 History & Physical Bridge Note I have examined the patient, reviewed the History & Physical and in the interval since the performance of the History & Physical I have noted the following changes of clinical significance: no changes noted
[2023-07-26] MEDS ORDERED: PROPOFOL IV EMULSION 10 MG/ML 20 ML VIAL IV ONE (14:06)
[2023-07-26] MEDS ORDERED: ONDANSETRON INJ 2 MG/ML 2 ML VIAL ONE (14:06)
[2023-07-26] MEDS ORDERED: DEXAMETHASONE SOD INJ 4 MG/ML VIAL ONE (14:06)
[2023-07-26] MEDS ORDERED: fentaNYL citrate PF 100 MCG/2 ML VIAL ONE ×2 (14:07→15:46)
[2023-07-26] MEDS ORDERED: ceFAZolin 2000MG 2,000 MG/15 ML SYR IV ONE (14:18)
[2023-07-26] MEDS ORDERED: BUPIVACAINE/EPINEPHRINE 0.5% MPF 1:200,000 30 ML VIAL ONE (14:46)
--- NOTE | 2023-07-26 14:57 | Anesthesiology Consultation ---
Date of Service July 26, 2023 Assessment & Plan Chart Review Chart Review: Acceptable Risk for Surgery and Patient NOT seen in Pre Admission Testing Consults Requested none ASA ASA2 Proposed Anesthesia Anesthesia Type: General Risk / Benefits Reviewed With: PT / POA / Parent / Guardian, Accepts Plan and Informed Consent Obtained History Surgery Operation Date: 07/26/23 09:00 Proposed Procedures p Left Hip Bipolar Arthroplasty - Boone Nettles MD Height/Weight Height: 5 ft 10 in Weight: 73.2 kg Allergies Allergy/AdvReac Type Severity Reaction Status Date / Time No Known Allergies Allergy Unknown Verified 07/25/23 15:47 Medications Home Medications Medication Instructions Recorded Confirmed Last Taken simvastatin 80 mg tablet 80 mg PO DAILY 12/31/21 07/25/23 07/25/23 tadalafil 20 mg tablet 20 mg PO DAILY PRN sexual activity 05/05/22 07/25/23 Unknown #10 tabs Active Medications Generic Name Dose Route Start Last Admin Trade Name Freq PRN Reason Stop Dose Admin Hydromorphone HCl 0.5 mg 07/25/23 20:22 07/26/23 01:39 Hydromorphone Inj 0.5 Mg/0.5 Ml Syr IV 08/08/23 20:21 0.5 mg Q3H PRN Administration Pain (6,7,8,9,10) Acetaminophen 1,000 mg in 100 mls @ 400 mls/hr 07/25/23 20:22 07/26/23 01:00 Ofirmev IV 07/28/23 20:21 Infused Q8H PRN Infusion pain, first line Lactated Ringer's 1,000 mls @ 80 mls/hr 07/25/23 20:22 07/26/23 09:05 Lr IV 07/26/23 21:21 80 mls/hr .[id number] VINNIE Administration NPO Date Last Intake of Fluids: 07/25/23 Time Last Intake of Fluids: 23:00 Date Last Intake of Solids: 07/25/23 Time Last Intake of Solids: 19:30 Past Medical History Medical History Cervical spondylosis Stiff neck Cervical facet joint syndrome History of COVID-19 (06/2020) JUN 2020 Osteoarthritis Hyperlipidemia Exercise / Class Metabolic Activity II 4-5 Yardwork/Stairs/Walk up hill Past Family History Family History Sister Colorectal cancer, Onset Age: 78 Brother Cancer Son Kidney disease Diabetes Father No problems noted. Mother No problems noted. Other Breast cancer Denies family history of Ovarian cancer Prostate cancer Myocardial infarction Past Surgical History Surgical History H/O carpal tunnel repair R wrist History of cataract surgery BILAT Hx of inguinal hernia surgery (06/21/19) Right Open Recurrent Indirect Inguinal Hernia Repair with Mesh; Excision of Lipoma of the Cord Dr. Ham 06-21-19 History of tooth extraction History of tonsillectomy Past Anesthesia History No Hx of Anesthesia Complications and No Family Hx of Anesthesia Complications History of PONV No Hx of PONV and No Hx of Motion Sickness Social History Smoking Status: Never smoker Do You Dip or Chew Tobacco: No Hx Alcohol Use: No Hx Substance Use: No substance use type: does not use Physical Exam Vital Signs Last Vital Signs Temp 37 C 07/26/23 13:25 Pulse 58 L 07/26/23 13:25 Resp 18 07/26/23 13:25 BP 121/97 07/26/23 13:25 Pulse Ox 96 07/26/23 13:25 O2 Del Method Room Air 07/26/23 13:25 Constitutional no acute distress and not cachectic ENMT Mouth: no dentition abnormality Thyromental Distance: > or= 3.5 Finger Breadths Mallampati Class: II Neck normal visual inspection and trachea midline; neck extension not limited Respiratory normal respiratory effort Auscultation: lungs clear to auscultation bilaterally Cardiovascular Rate/Rhythm: regular rate and regular rhythm Heart Sounds: no murmur Vessels: no carotid bruit Musculoskeletal Spine: normal cervical ROM and no pain with cervical ROM Extremities: + limited ROM of extremities; + extremities abnormal to inspection Neurologic moves all extremities Motor/Sensory: no sensory deficit Psychiatric Orientation: alert and oriented x 3 Testing Laboratory Results 07/26/23 07:16 07/26/23 07:16 PT 10.9 Seconds (9.0-12.0) 07/25/23 14:30 INR 1.0 (0.9-1.1) 07/25/23 14:30 APTT 20 Seconds (21-31) L 07/25/23 14:30 Urine Color Yellow 07/25/23 15:05 Urine Appearance Clear (Clear) 07/25/23 15:05 Urine pH 7.0 (4.5-7.5) 07/25/23 15:05 Ur Specific [place] 1.012 (1.000-1.030) 07/25/23 15:05 Urine Protein Negative (Negative) 07/25/23 15:05 Urine Glucose (UA) Negative (Negative) 07/25/23 15:05 Urine Ketones Negative (Negative) 07/25/23 15:05 Urine Nitrite Negative (Negative) 07/25/23 15:05 Ur Leukocyte Esterase Negative (Negative) 07/25/23 15:05 Urine WBC (Auto) 1-5 /hpf (0-5) 07/25/23 15:05 Urine RBC (Auto) 0-4 /hpf (0-4) 07/25/23 15:05 U Hyaline Cast (Auto) 0 /lpf (0-5) 07/25/23 15:05 U Epithel Cells (Auto) 10-20 /lpf (0-5) H 07/25/23 15:05 Urine Bacteria (Auto) Negative (Negative) 07/25/23 15:05 Blood Type A Negative 07/25/23 20:15 Antibody Screen NEGATIVE 07/25/23 20:15 Electrocardiogram Date: 07/25/23 Findings: + NSST changes and + SB @ (@ 57;1st degree AVB;NS IV Coduc. delay;LVH;) Echocardiogram Date: 06/08/19 EF: 60% LV Function: normal RWMA: + none Other Findings: + atrial enlargement (LA - mod. dilated) Valvular Disease: + AI (mild)
[2023-07-26] MEDS ORDERED: TRANEXAMIC ACID / 0.7% NACL 1000MG/100ML BAG IV ONE (15:16)
[2023-07-26] MEDS ORDERED: ROCURONIUM BROMIDE 10 MG/ML 5 ML VIAL IV ONE (15:24)
[2023-07-26] MEDS ORDERED: SUGAMMADEX SODIUM 200 MG/2 ML VIAL IV ONE (15:24)
[2023-07-26] MEDS ORDERED: SUCCINYLCHOLINE CHLORIDE 20 MG/ML 10 ML VIAL IV ONE (15:24)
[2023-07-26] MEDS ORDERED: GLYCOPYRROLATE 0.2 MG/ML VIAL ONE (15:25)
[2023-07-26] MEDS ORDERED: NALOXONE HCL 0.4 MG/1 ML VIAL/CARP IV PRN (15:37)
[2023-07-26] MEDS ORDERED: PROMETHAZINE HCL 12.5 MG in SODIUM CHLORIDE 0.9% 50 ML IV PRN (15:37)
[2023-07-26] MEDS ORDERED: ONDANSETRON INJ 2 MG/ML 2 ML VIAL IV PRN (15:37)
[2023-07-26] MEDS ORDERED: ATROPINE SULFATE 0.1 MG/ML 10ML SYR IV PRN (15:37)
[2023-07-26] MEDS ORDERED: FLUMAZENIL 0.1 MG/1 ML 10 ML VIAL IV PRN (15:37)
[2023-07-26] MEDS ORDERED: HYDROmorphone INJ 1 MG/ML SYRINGE IV PRN (15:37)
[2023-07-26] MEDS ORDERED: ePHEDrine sulfate 50 MG/ML AMP IV PRN (15:37)
--- NOTE | 2023-07-26 16:50 | Operative Report ---
PG Post Operative Report Pre & Post Diagnosis Operation Date: 07/26/23 09:00 Pre-Op Diagnosis: Closed displaced left femoral neck fracture Post-Op Diagnosis: Closed displaced left femoral neck fracture I identified the patient and participated in the time-out.: Yes Procedure Operation Date: 07/26/23 09:00 Actual Procedures p Left Hip Bipolar Arthroplasty-Cemented - Boone Nettles MD Surgeon Boone Nettles MD Mold Carpenter Frederick Bee PA-C Estimated Blood Loss 200 Findings Consistent with Post-Op Diagnosis Specimens Left femoral head sent for pathology Anesthesia Type General Complications none Disposition Accompanied Patient To Recovery: No Indications Patient is an 83-year-old very active healthy gentleman who sustained a fall yesterday. He had acute onset of pain and distal function and was unable to ambulate. Brought to emergency room where x-rays of a displaced femoral neck fracture. Patient was admitted by the medicine service, medically optimized indicated for surgical repair. Description of Procedure Operative implants consisted of: 1. DePuy Etoile size 5 high offset femoral stem. 2. 11 mm centralizer. 3. Small cement restrictor. 4. +5/28 mm articular ball. 5. 55 mm bipolar head and shell/liner. The patient was taken to the operating, identified, placed on the operating table in supine position but all contact areas were appropriately padded. IV antibiotic 5 by anesthesia team. A general anesthetic was implemented. The patient was then placed on the operating table in the right lateral decubitus position. A roll was placed. Stulberg hip positioner was used for positioning. The left hip and leg were then prepped with Hibiclens scrub and then prepped with ChloraPrep and then draped in the usual sterile fashion. A posterolateral approach to the left hip was then performed through a curvilinear incision centered over the greater trochanter. Sharp dissection was carried through subcutaneous tissue down to level the IT band gluteal fascia. IT band and gluteal fascia were incised longitudinally in line with skin incision. The underlying greater bursa was excised. There is quite a bit of hemorrhage back in the posterior aspect of her hip from the fall. The external rotators along with the posterior hip joint capsule were then released very carefully from the posterior aspect of the hip as a single layer. I then did T VU capsule and tagged it for later repair. The hip was internally rotated. Femoral neck osteotomy cut was made below the fracture site which it was about 15 mm above the lesser trochanter. Femoral neck was removed. The femoral head was removed. I examined the acetabulum it looked well-preserved. We sized the acetabulum size 55. Attention drawn the femur. The proximal femur was entered with a cookie cutter followed by a canal finder and lateralizing reamer. I then broached beginning with size 1 and progressing up to 4. Got pretty good fit with a 4. I trialed the hip and the high offset stem fit most appropriately. The +5 articular ball fit appropriately. His hip was fully stable. There was stable to full extension and external rotation flexion to 90 degrees internal Tatian over 50 degrees. Leg lengths seemed equal. I elected to place these implants. All trial implants were removed. A small cement restrictor was placed down the canal. The canal was brushed and cleaned. A double batch Palacos G cement was mixed and injected in the canal. A size 4 Etoile high offset cemented femoral stem was then placed. Once all cement hardened a +5/28 mm articular ball with a 55 mm bipolar shell and liner were placed. Hip was located and once again found to be stable. Attention on door closing. Irrigated the wound extensively. We did inject locally with 30 cc of half per cent Marcaine with epinephrine. The posterior capsule was then repaired with #2 Tycron suture. The IT band gluteal fascia then closed with #1 PDS suture in running fashion. Subcutaneous tissue then closed 2 layers with a deep layer #1 Vicryl suture and subcutaneous tissue with 2-0 Dexon suture in a buried interrupted fashion. Skin was closed skin mayelin. Leg was then cleaned and dried and sterile dressing with Xeroform, 4 x 4's, ABD pad and foam tape was applied. Patient then brought out of general anesthesia and transferred to the recovery room in stable condition. Patient tolerated the procedure well and there were no complications. Frederick Bee, my physician assistant manager retail, was present for the entire procedure. His assistance was required for proper patient positioning, prepping and draping, surgical exposure, retraction, perform the technical details of the operation, placement of the implants, closure of the incision site and placement of sterile bandage. I attest to the content of the Intraoperative Record and any orders documented therein. Any exceptions are noted below.
[2023-07-26] MEDS: fentaNYL citrate PF 100 MCG/2 ML VIAL IV PRN ×4 (16:55→17:10)
--- NOTE | 2023-07-26 17:31 | Anesthesiology Progress Note ---
Date of Service July 26, 2023 Anesthesia Post Procedure Vital Signs Vital Signs: Temp Pulse Pulse Resp BP BP Pulse Ox 07/26/23 17:20 37 C 65 16 154/78 H 99 07/26/23 17:10 64 22 154/79 H 98 07/26/23 17:00 65 14 156/72 H 100 07/26/23 16:50 66 18 132/68 100 07/26/23 16:42 36.2 C L 75 14 144/102 H 96 07/26/23 13:25 37 C 58 L 18 121/97 96 07/26/23 11:13 36.9 C 53 L 15 143/69 H 96 07/26/23 07:33 36.7 C 51 L 15 153/71 H 97 07/25/23 20:23 07/25/23 20:22 36.9 C 64 18 147/77 H 96 07/25/23 18:37 78 18 157/76 H 95 O2 Del Method O2 Flow Rate 07/26/23 17:20 Nasal Cannula 2 07/26/23 17:10 Room Air 07/26/23 17:00 Oxymask 4 07/26/23 16:50 Oxymask 6 07/26/23 16:42 Oxymask 6 07/26/23 13:25 Room Air 07/26/23 11:13 Room Air 07/26/23 07:33 Room Air 07/25/23 20:23 Room Air 07/25/23 20:22 Room Air 07/25/23 18:37 Room Air Pain Intensity Left Hip: Pain Intensity: 4 Transfer of Care Handoff Completed per policy Notes Mental Status: alert / awake / arousable and participated in evaluation Patient Amnestic to Procedure: Yes Nausea / Vomiting: adequately controlled Pain: adequately controlled Airway Patency, RR, SpO2: stable & adequate BP & HR: stable & adequate Hydration State: stable & adequate Anesthetic Complications: no major complications apparent and Pt Satisfied with anesthetic care
[2023-07-26] MEDS ORDERED: oxyCODONE HCL IR 5 MG TAB (IMMEDIATE RELEASE) PO PRN (17:35)
[2023-07-26] MEDS: SODIUM CHLORIDE 0.9% 1,000 ML IV SCH (17:44)
--- NOTE | 2023-07-26 18:17 | XRay Report ---
XR hip LT min 2V HISTORY: 83 years-old Male Post-Operative implant position left hip arthroplasty COMPARISON: 07/25/2023 TECHNIQUE: 2 views of the left hip FINDINGS: Left hip arthroplasty demonstrates satisfactory alignment. Lateral skin mayelin with expected postope rative soft tissue swelling and deep tissue air. No acute fracture or unexpected opaque foreign body. Arterial calcifications. IMPRESSION: Left hip arthroplasty with expected postoperative changes. ACT 112: Negative or not required by law. The above report was generated using voice recognition software. It may contain grammatical, syntax o r spelling errors. Electronically signed by: Abebe Cedillo M.D. 07/26/2023 6:15 PM
[2023-07-26] MEDS: ASPIRIN 81 MG ECTAB PO SCH (22:41)
[2023-07-26] MEDS: ceFAZolin 1000MG 1,000 MG/7.5 ML SYR IV SCH (22:44)
[2023-07-27] MEDS: ceFAZolin 1000MG 1,000 MG/7.5 ML SYR IV SCH (05:41)
[2023-07-27] MEDS: SODIUM CHLORIDE 0.9% 1,000 ML IV SCH (05:43)
[2023-07-27] MEDS: HYDROmorphone INJ 0.5 MG/0.5 ML SYR IV PRN ×2 (05:58→22:46)
[2023-07-27 06:58] LABS: Basophils # (auto) 0.02 K/uL (0.00-0.20); Basophils % (auto) 0.2 %; Hematocrit (blood only) 31.9 % (42.0-52.0); Hemoglobin 11.2 g/dl (14.0-18.0); Immature Granulocytes # (auto) 0.05 K/uL (0.01-0.20); Immature Granulocytes % (auto) 0.4 %; Lymphocytes # (auto) 1.82 K/uL (1.20-3.40); Lymphocytes % (auto) 13.9 %; Mean Corpuscular Hemoglobin 32.7 pg (25.0-34.0); Mean Corpuscular Hgb Conc 35.1 g/dL (32.0-36.0); Mean Platelet Volume 11.1 fL (9.4-12.4); Monocytes # (auto) 1.38 K/uL (0.11-0.59); Monocytes % (auto) 10.6 %; Neutrophils % (auto) 74.9 %; Platelet Count 147 K/uL (130-400); RDW Coefficient of Variation 12.4 % (11.5-14.5); RDW Standard Deviation 42.6 fL (36.4-46.3); Red Blood Count 3.43 M/uL (4.70-6.10); White Blood Count 13.07 K/ul (4.8-10.8)
[2023-07-27 07:38] LABS: Calcium 8.6 mg/dl (8.6-10.3); Magnesium 1.8 mg/dl (1.7-2.4); Potassium 4.3 mmol/L (3.5-5.1)
[2023-07-27 07:44] LABS: BUN Creatinine Ratio 20.3 (10-20); Creatinine Clr Calc Pharmacy 75.4 ml/min; Est GFR (African American) 97.5 ml/min; Est GFR (Non-African American) 84.1 ml/min
[2023-07-27] MEDS: ASPIRIN 81 MG ECTAB PO SCH ×2 (08:45→20:25)
[2023-07-27] MEDS: ATORVASTATIN 40 MG TAB PO SCH (08:45)
--- NOTE | 2023-07-27 09:20 | Hospitalist Progress Note ---
Date of Service July 27, 2023 Assessment & Plan (1) Closed left hip fracture: Plan: Mechanical fall, no syncope/presyncope/cardiac arrhythmia contributing to his fall as tripped over wood trying to get for heating his home. CT head/cervical spine negative Imaging noting acute displaced LEFT femoral neck fracture. Orthopedics consulted s/p Left Hip Bipolar Arthroplasty-Cemented - Boone Nettles MD on 07/26 EBL 200cc WBC elevation suspected 2nd to surgery/steroids. Afebrile Hgb 11.6--> 11.2 on repeat and stable. acute blood loss anemia from surgery in setting of fracture/some dilution from IVF Pain control - tylenol, oxycodone, diluadid available as needed Bowel regimen w/ miralax q6h, dulcolax available prn. can add colace BID if needed +flatus, no BM yet Dykes to be removed this afternoon DVT proph: SCDs. +ASA 81mg BID post-operatively Vit D 35, 1000IU PO ordered daily. can continue at [facility] PT/OT consulted -- recs for rehab this morning, discussed. Patient was hoping for home w/ home health but agreeable to rehab. Will continue therapy while inpatient/CM to send referrals. If makes progress while awaiting bed can consider home but rehab current plan. If home, will need rx for walker as well as raised toilet seat. Chronic problems Hyperlipidemia, resumed lipitor 80mg daily ASA BID by primary service for DVT prophylaxis Plan CODE STATUS:DNR/DNI continued inpatient stay, req for rehab [place] [facility] based on present PT/OT evals. CM to discuss today/send referrals Admission and Anticipated Discharge Date Admission Date: July 25, 2023 Supervising Physician Co-Signing Physician Notes The patient was not seen by me. The chart was reviewed. Case discussed with MACKENZIE Kenyon. Agree with assessment and plan Subjective Eval this morning, sitting up in recliner chair. hip precautions in place. pain to his left hip controlled with ordered medications. Reports 5/10 at present but not wanting anything additional for pain control at present time. just got done working with therapy, recs for rehab at present. Initially wanted home w/ home health but agreeable to rehab. Discussed CM to discuss but if waiting for bed for several days will continue to evaluate with therapy while in house to see if making any progress but current recs for rehab and pursuing. Passing gas, no BM. Bowel regimen ordered. Dykes in place but nursing to assess/likely remove this afternoon. No fever/chills, chest pain, shortness of breath, abdominal pain, nausea or vomiting. Was only ordered clear liquid diet by orthopedics, advanced to AHA diet. Questions/concerns addressed at this time. Physical Exam Physical Exam: General: 83yo male sitting up in chair, NAD, just got done working with therapy Head atraumatic, normocephalic, mmm, trachea midline Resp: even/unlabored, slightly diminished in the bases, faint inspiratory wheeze anterior chest initially (resolved on subsequent listening), no c/r, on room air CV: RRR, no significant mrg, no pitting edema/calf tenderness, cap refill wnl GI: +BS, soft/NT : dykes in place, yellow urine draining MSK/Neuro: dressing to LEFT hip in place, ice pack present. slight edema/tenderness sensation intact, toes mobile, dorsiflexion/plantar flexion intact cap refill wnl calves nontender abrasion to medial aspect L knee, no surrounding erythema/cellulitis Psych: AOx3, cooperative with exam Results & Data Results & Data Vital Signs (Past 12 Hours) Vital Signs Temp Pulse Resp BP BP Pulse Ox O2 Del Method 07/27/23 07:45 36.8 C 68 16 120/67 93 Room Air 07/27/23 04:25 36.8 C 77 18 129/71 94 Room Air 07/27/23 00:25 37.1 C 61 18 122/70 94 Room Air 07/26/23 21:45 Room Air Laboratory Results 07/27/23 Range/Units 06:00 WBC 13.07 H (4.8-10.8) K/ul RBC 3.43 L (4.70-6.10) M/uL Hgb 11.2 L (14.0-18.0) g/dl Hct 31.9 L (42.0-52.0) % MCV 93.0 (80.0-100.0) fL MCH 32.7 (25.0-34.0) pg MCHC 35.1 (32.0-36.0) g/dL RDW Std Deviation 42.6 (36.4-46.3) fL RDW Coeff of Clarke 12.4 (11.5-14.5) % Plt Count 147 (130-400) K/uL MPV 11.1 (9.4-12.4) fL Immature Gran % (Auto) 0.4 % Neut % (Auto) 74.9 % Lymph % (Auto) 13.9 % Cascade % (Auto) 10.6 % Eos % (Auto) 0.0 % Baso % (Auto) 0.2 % Neut # (Auto) 9.80 H (1.40-6.50) K/uL Lymph # (Auto) 1.82 (1.20-3.40) K/uL Cascade # (Auto) 1.38 H (0.11-0.59) K/uL Eos # (Auto) 0.00 (0.00-0.50) K/uL Baso # (Auto) 0.02 (0.00-0.20) K/uL Immature Gran # (Auto) 0.05 (0.01-0.20) K/uL Sodium 133 L (136-145) mmol/L Potassium 4.3 (3.5-5.1) mmol/L Chloride 102 (98-107) mmol/L Carbon Dioxide 26 (21-32) mmol/L Anion Gap 5 (3-11) BUN 15 (6-23) mg/dl Creatinine 0.74 (0.6-1.4) mg/dl Est Cr Clr Drug Dosing 75.4 ml/min Est GFR ( Amer) 97.5 ml/min Est GFR (Non-Af Amer) 84.1 ml/min BUN/Creatinine Ratio 20.3 H (10-20) Glucose 138 H (70-99(Fasting)) mg/dl Calcium 8.6 (8.6-10.3) mg/dl Magnesium 1.8 (1.7-2.4) mg/dl 25-OH Vitamin D Total 35.5 (30-100) ng/ml Diagnostic Findings Hip X-Ray 07/26/23 17:35 XR hip LT min 2V HISTORY: 83 years-old Male Post-Operative implant position left hip arthroplasty COMPARISON: 07/25/2023 TECHNIQUE: 2 views of the left hip FINDINGS: Left hip arthroplasty demonstrates satisfactory alignment. Lateral skin mayelin with expected postoperative soft tissue swelling and deep tissue air. No acute fracture or unexpected opaque foreign body. Arterial calcifications. IMPRESSION: Left hip arthroplasty with expected postoperative changes. ACT 112: Negative or not required by law. The above report was generated using voice recognition software. It may contain grammatical, syntax or spelling errors. Electronically signed by: Abebe Cedillo M.D. 07/26/2023 6:15 PM PG Care Time/CCT Total # of Minutes Spent Total Time Spent with Patient: Total time spent is greater than 50% in coordination of care (as documented) at patient's floor/unit and/or counseling patient: Coding Level of Care Code 69296 SUB INP/OBS CARE 2/35MIN Diagnoses Closed fracture of left hip, initial encounter S72.002A Encounter type: initial encounter (1) Closed left hip fracture Encounter type: initial encounter Qualified Code(s): S72.002A - Fracture of unspecified part of neck of left femur, initial encounter for closed fracture
--- NOTE | 2023-07-27 11:48 | Orthopedic Progress Note ---
Date of Service July 27, 2023 Assessment & Plan (1) Status post hip hemiarthroplasty: Overall, he is doing quite well today with good pain control to the left hip. He will continue working with physical therapy working on ambulation and range of motion exercises. He is currently on aspirin for DVT prophylaxis. Case management is currently working on getting him a referral for inpatient rehabilitation. They are trying to get to [facility] here and [place]. He will follow-up with Dr. Nettles in 2 weeks for postoperative care. Will continue to follow. Subjective .Freddy was seen and evaluated this morning resting comfortably at bedside in no apparent distress. He notes that he has been up with physical therapy today. He notes that they worked on transitioning today from bed to chair. He denies any other concerns today. Review of Systems All systems reviewed & are unremarkable except as noted in HPI & below. Physical Exam . On physical examination of the left hip, dressings are clean, dry, intact. His leg is out in full extension. He has active plantarflexion dorsiflexion to the left ankle. +2 DP and PT pulses. Less than 2-second capillary refill. Normal sensation. Neurovascular intact. Results & Data Results & Data Laboratory Results . Diagnostic Findings . Postoperative x-rays of the left hip show prosthesis to be in anatomical alignment with no signs of fracture complication or loosening. PG Care Time/CCT Total # of Minutes Spent Total Time Spent with Patient: Total time spent is greater than 50% in coordination of care (as documented) at patient's floor/unit and/or counseling patient: Coding Level of Care Code 14676 Post Operative Follow-Up Diagnoses Status post hip hemiarthroplasty Z96.649
[2023-07-27] MEDS: DOCUSATE SODIUM 100 MG CAP PO SCH (20:26)
[2023-07-28 07:35] LABS: Basophils # (auto) 0.05 K/uL (0.00-0.20); Basophils % (auto) 0.4 %; Eosinophils # (auto) 0.02 K/uL (0.00-0.50); Eosinophils % (auto) 0.2 %; Hematocrit (blood only) 29.8 % (42.0-52.0); Hemoglobin 10.4 g/dl (14.0-18.0); Immature Granulocytes # (auto) 0.04 K/uL (0.01-0.20); Immature Granulocytes % (auto) 0.3 %; Lymphocytes # (auto) 2.42 K/uL (1.20-3.40); Lymphocytes % (auto) 20.1 %; Mean Corpuscular Hemoglobin 32.8 pg (25.0-34.0); Mean Corpuscular Hgb Conc 34.9 g/dL (32.0-36.0); Mean Platelet Volume 11.1 fL (9.4-12.4); Monocytes # (auto) 1.56 K/uL (0.11-0.59); Neutrophils # (auto) 7.92 K/uL (1.40-6.50); Platelet Count 123 K/uL (130-400); RDW Coefficient of Variation 12.1 % (11.5-14.5); RDW Standard Deviation 42.2 fL (36.4-46.3); Red Blood Count 3.17 M/uL (4.70-6.10); White Blood Count 12.01 K/ul (4.8-10.8)
[2023-07-28 08:13] LABS: BUN Creatinine Ratio 25.4 (10-20); Calcium 8.4 mg/dl (8.6-10.3); Creatinine Clr Calc Pharmacy 88.5 ml/min; Est GFR (African American) 104.1 ml/min; Est GFR (Non-African American) 89.9 ml/min; Potassium 4.1 mmol/L (3.5-5.1)
--- NOTE | 2023-07-28 08:28 | Hospitalist Progress Note ---
Date of Service July 28, 2023 Assessment & Plan (1) Closed left hip fracture: Plan: Mechanical fall, no syncope/presyncope/cardiac arrhythmia contributing to his fall as tripped over wood trying to get for heating his home. CT head/cervical spine negative Xray w/ acute displaced LEFT femoral neck fracture. Orthopedics consulted s/p Left Hip Bipolar Arthroplasty-Cemented - Boone Nettles MD on 07/26. EBL 200cc WBC elevation suspected 2nd to stress/surgery/steroids. Has been afebrile Hgb 11.6--> 11.2 on repeat and stable. acute blood loss anemia from surgery in setting of fracture/some dilution from IVF Vit D 35, remains on 1000IU daily and can continue at [facility] Pain control - tylenol, oxycodone, Dilaudid available as needed for breakthrough Bowel regimen w/ miralax q6h, dulcolax available prn. can add colace BID if needed +flatus, no BM yet Dykes removed 07/27, urinating without issue since removal DVT proph: SCDs, ASA 81mg BID PT/OT consults rec rehab - CM following. Continued therapy while inpatient however if making improvements prior to obtaining bed could consider home health If home, will need rx for walker as well as raised toilet seat. (2) Hypercholesterolemia: Plan: Chronic Continue Lipitor 80mg daily (3) Hyponatremia: Plan: Na 137 on admit, repeat 133 and remained stable/asymptomatic and was monitoring Na down to 129 on repeat, ?unclear cause. Patient completely asymptomatic from such, no lightheaded/dizziness/headache/nausea/etc -- to alert nursing if occurs. Had been provided IVF post-op but didn't appear significantly volume overloaded TSH added to AM labs, wnl at 1.96 ?uncontrolled pain -- reports improved/controlled but is tender. ?2nd to anesthesia. Glu wnl on AM labs. ?lab error Monitor BMP, f/u urine/serum osm Plan CODE STATUS:DNR/DNI continued inpatient stay PT/OT recs for rehab -- referral sent to [facility] following Admission and Anticipated Discharge Date Admission Date: July 25, 2023 Supervising Physician Co-Signing Physician Notes The patient was not seen by me. The chart was reviewed. Case discussed with MACKENZIE Kenyon. Agree with assessment and plan Subjective Eval this morning, doing well, sitting up in recliner chair. Pain improved compared to day prior, controlled with ordered medications. Dykes removed yesterday, no issues with voiding since that time. Passing gas but no BM yet. Continued therapy while inpatient/plans for rehab at present but will continue to monitor. No fever/chills, chest pain, shortness of breath. Discussed Na level and he denies any headaches, lightheadedness, nausea, vomiting, dizziness, etc. No LE edema/excessive water intake. Discussed will monitor for now, encouraged Gatorade over water but to alert nursing of any symptoms. Inquired about when dressing to be changed as pulling a little - will message ortho. Questions/concerns addressed at this time. Physical Exam 2 Physical Exam: General: 83yo male sitting up in chair, NAD, reporting pain controlled Head atraumatic, normocephalic, mmm, trachea midline Resp: even/unlabored, slightly diminished in the bases, but no w/c/r, on room air CV: RRR, no significant mrg, no pitting edema/calf tenderness, cap refill wnl GI: increased bowel sounds, slight distension but soft/NT : no further dykes (removed 07/27) MSK/Neuro: dressing to LEFT hip in place, ice pack present. slight edema/tenderness (reports pulling sensation from dressing), toes mobile/cap refill wnl dorsiflexion/plantar flexion intact abrasion to medial aspect L knee, no surrounding erythema/cellulitis Psych: AOx3, cooperative with exam Results & Data Results & Data Vital Signs (Past 12 Hours) Vital Signs Temp Pulse Resp BP BP Pulse Ox O2 Del Method 07/28/23 08:08 37.0 C 69 18 130/73 93 Room Air 07/27/23 22:39 36.6 C 64 18 119/60 96 Room Air Laboratory Results 07/28/23 06:37 07/28/23 06:37 PG Care Time/CCT Total # of Minutes Spent Total Time Spent with Patient: Total time spent is greater than 50% in coordination of care (as documented) at patient's floor/unit and/or counseling patient: Coding Level of Care Code 23129 SUB INP/OBS CARE 3/50MIN Diagnoses Closed fracture of left hip, initial encounter S72.002A Encounter type: initial encounter Hypercholesterolemia E78.00 Hyponatremia E87.1 (1) Closed left hip fracture Encounter type: initial encounter Qualified Code(s): S72.002A - Fracture of unspecified part of neck of left femur, initial encounter for closed fracture
[2023-07-28] MEDS: DOCUSATE SODIUM 100 MG CAP PO SCH ×2 (08:45→20:25)
[2023-07-28] MEDS: CHOLECALCIFEROL 25 MCG (1000 UNITS) TAB PO SCH (08:45)
[2023-07-28] MEDS: ATORVASTATIN 40 MG TAB PO SCH (08:46)
[2023-07-28] MEDS: ASPIRIN 81 MG ECTAB PO SCH ×2 (08:46→20:26)
[2023-07-28 09:27] LABS: Thyroid Stimulating Hormone 1.966 uIu/ml (0.300-4.500)
--- NOTE | 2023-07-28 09:53 | Orthopedic Progress Note ---
Date of Service July 28, 2023 Assessment & Plan (1) Status post hip hemiarthroplasty: Overall, he is doing quite well today with good pain control to the left hip. He will continue working with physical therapy working on ambulation and range of motion exercises. He is currently on aspirin for DVT prophylaxis. Case management is currently working on getting him a referral for inpatient rehabilitation. They are trying to get to [facility] here in [place]. He will follow-up with Dr. Nettles in 2 weeks for postoperative care. Will continue to follow. Subjective . Freddy was seen and evaluated this morning resting comfortably at bedside in no apparent distress. He notes that he has been up with physical therapy but did not do much ambulation other than transitioning from bed to chair. He has yet to work with him today. He denies any other concerns today. Review of Systems All systems reviewed & are unremarkable except as noted in HPI & below. Physical Exam .On physical examination of the left hip, dressings are clean, dry, intact. His leg is out in full extension. He has active plantarflexion dorsiflexion to the left ankle. +2 DP and PT pulses. Less than 2-second capillary refill. Normal sensation. Neurovascular intact. Results & Data Results & Data Laboratory Results . Diagnostic Findings . PG Care Time/CCT Total # of Minutes Spent Total Time Spent with Patient: Total time spent is greater than 50% in coordination of care (as documented) at patient's floor/unit and/or counseling patient: Coding Level of Care Code 64660 Post Operative Follow-Up Diagnoses Status post hip hemiarthroplasty Z96.649
[2023-07-28] MEDS: POLYETHYLENE (MIRALAX) 17 GM PACK PO SCH (18:22)
[2023-07-29] MEDS: POLYETHYLENE (MIRALAX) 17 GM PACK PO SCH ×3 (01:39→12:24)
--- NOTE | 2023-07-29 08:42 | Hospitalist Progress Note ---
Date of Service July 29, 2023 Assessment & Plan (1) Closed left hip fracture: Plan: Mechanical fall, no syncope/presyncope/cardiac arrhythmia contributing to his fall as tripped over wood trying to get for heating his home. CT head/cervical spine negative Xray w/ acute displaced LEFT femoral neck fracture. Orthopedics consulted s/p Left Hip Bipolar Arthroplasty-Cemented - Boone Nettles MD on 07/26. EBL 200cc WBC elevation suspected 2nd to stress/surgery/steroids. Has been afebrile Hgb 11.6--> 11.2 on repeat and stable. acute blood loss anemia from surgery in setting of fracture/some dilution from IVF Vit D 35, remains on 1000IU daily and can continue at dc Pain control - tylenol, oxycodone, Dilaudid available as needed for breakthrough Bowel regimen w/ miralax q6h, dulcolax available prn. can add colace BID if needed +flatus, no BM yet Marks removed 07/27, urinating without issue since removal DVT proph: SCDs, ASA 81mg BID PT/OT consults rec rehab - CM following. Continued therapy while inpatient however if making improvements prior to obtaining bed could consider home health If home, will need rx for walker as well as raised toilet seat. (2) Hypercholesterolemia: Plan: Chronic Continue Lipitor 80mg daily (3) Hyponatremia: Plan: Na 137 on admit, repeat 133 and remained stable/asymptomatic and was monitoring Na down to 129 on repeat, ?unclear cause. Patient completely asymptomatic from such, no lightheaded/dizziness/headache/nausea/etc -- to alert nursing if occurs. Had been provided IVF post-op but didn't appear significantly volume overloaded TSH added to AM labs, wnl at 1.96 ?uncontrolled pain -- reports improved/controlled but is tender. ?2nd to anesthesia. Glu wnl on AM labs. ?lab error Monitor BMP, f/u urine/serum osm Plan CODE STATUS:DNR/DNI continued inpatient stay PT/OT recs for rehab -- referral sent to [facility] following Admission and Anticipated Discharge Date Admission Date: July 25, 2023 Subjective Eval this morning, doing well. Moved bowels this morning. Pain controlled. Labs stable/improved. Anticipating rehab but is making progress w/ PT. Thinks he did pretty well. Will follow up on therapy evals to see if able to accommodate w/ home health as prior requested. He notes he would be appreciative of this. He notes he does NOT have any steps at home. No fever/chills, chest pain, shortness of breath, nausea/vomiting or other issues reported at this time. Questions/concerns addressed. Results & Data Results & Data Vital Signs (Past 12 Hours) Vital Signs Temp Pulse Resp BP BP Pulse Ox O2 Del Method 07/29/23 07:47 36.7 C 64 18 107/67 94 Room Air 07/28/23 21:43 36.9 C 73 18 108/64 95 Room Air PG Care Time/CCT Total # of Minutes Spent Total Time Spent with Patient: Total time spent is greater than 50% in coordination of care (as documented) at patient's floor/unit and/or counseling patient: Coding Diagnoses Closed fracture of left hip, initial encounter S72.002A Encounter type: initial encounter Hypercholesterolemia E78.00 Hyponatremia E87.1 (1) Closed left hip fracture Encounter type: initial encounter Qualified Code(s): S72.002A - Fracture of unspecified part of neck of left femur, initial encounter for closed fracture
[2023-07-29] MEDS: CHOLECALCIFEROL 25 MCG (1000 UNITS) TAB PO SCH (08:54)
[2023-07-29] MEDS: DOCUSATE SODIUM 100 MG CAP PO SCH (08:54)
[2023-07-29] MEDS: ASPIRIN 81 MG ECTAB PO SCH (08:54)
[2023-07-29] MEDS: ATORVASTATIN 40 MG TAB PO SCH (08:54)
[2023-07-29 10:30] LABS: BUN Creatinine Ratio 25.8 (10-20); Calcium 8.6 mg/dl (8.6-10.3); Creatinine Clr Calc Pharmacy 84.5 ml/min; Est GFR (African American) 102.2 ml/min; Est GFR (Non-African American) 88.2 ml/min; Magnesium 2.1 mg/dl (1.7-2.4); Potassium 3.8 mmol/L (3.5-5.1)
[2023-07-29] MEDS ORDERED: ACETAMINOPHEN 500 MG TAB PO PRN (13:20)
--- NOTE | 2023-07-29 13:32 | Discharge Summary ---
Date of Service July 29, 2023 Admission HPI Per Admitting Provider Freddy is an 83-year-old male with past medical history of cervical spondylosis, osteoarthritis, and hyperlipidemia who presented to the ER after he tripped over a piece of wood causing him to strike his left hip with immediate pain and inability to bear weight. No chest pain, chest pressure, syncope, or presyncope that caused him to fall. Head/neck CT are normal he did not lose consciousness. Hip x-ray shows a acute displaced left femoral neck fracture with 1.5 cm of displacement. Freddy is seen at the bedside. He reports he slipped over a piece of wood and fell striking his left hip and the side of his left head. He has no headache and did not lose consciousness. He is not on blood thinners. He reports other than high cholesterol for which she takes a cholesterol medicine he has no medical problems. No history of heart disease or angina, and is normally active without any chest pain or shortness of breath. No history of tobacco or alcohol use. No kidney disease. He has not had any lighthe adedness/dizziness/syncopal/presyncopal symptoms. He reports his pain is around a 5/10 at time of bedside assessment, tolerable at rest but has immediate pain with any attempted movement. Reviewed resuscitation with patient and his ; patient reports that in the event of a complete cardiac or pulmonary arrest he would not want resuscitation and would prefer to be DNR/DNI status but is aware that this may be temporarily reversed intraoperatively. No other questions or concerns at bedside Denies medication allergies, no substance use, DNR/DNI. Admitted to medical/surgical Admission Exam Per Admitting Provider General: A&Ox3. NAD. Cooperative. HEENT: Atraumatic, normocephalic. Vision/hearing intact pupils equal and reactive to light Pulm: CTAB A&P. -wheezes, -rales, -rhonchi. Symmetrical chest rise. No increased work of breathing. No respiratory distress. Cardiac: RRR, intermittently bradycardic at rest,-mrg. Radial pulses intact and symmetrical. Abdominal: Nontender, nondistended, soft. BS present. : Dykes in place Ext: Left hip slightly externally rotated and shortened. Tender palpation at the left hip. Sensation soft touch in feet intact bilaterally without asymmetry, PT pulse intact bilaterally without asymmetry, ankle dorsiflexion/plantarflexion is intact bilaterally. No signs of neurovascular compromise Principal Diagnosis LEFT HIP FRACTURE Discharge Exam General: 83yo male sitting up in chair, NAD, reporting pain controlled, would like to go home if able and reporting doing better with therapy this morning Head atraumatic, normocephalic, mmm, trachea midline Resp: CTAB, no significant w/c/r, 94% on RA CV: RRR, no significant mrg, no pitting edema/calf tenderness, cap refill wnl GI: +BS, soft/NT (reported just had BM this morning) : no dykes, voiding without issue MSK/Neuro: dressing to LEFT hip in place, ice pack present. slight edema/tenderness, toes mobile/cap refill wnl dorsiflexion/plantar flexion intact abrasion to medial aspect L knee, no surrounding erythema/cellulitis Psych: AOx3, cooperative with exam Discharge Data Allergies Allergy/AdvReac Type Severity Reaction Status Date / Time No Known Allergies Allergy Unknown Verified 07/25/23 15:47 Consultations 07/25/23 20:22 Consult Orthopedic Surgery Routine Procedures Performed Operation Date: 07/26/23 09:00 Actual Procedures p Left Hip Bipolar Arthroplasty-Cemented - Boone Nettles MD Ordered Studies Cervical Spine CT 07/25/23 14:17 CT cervical spine wo con CLINICAL HISTORY: fall, head injury TECHNIQUE: Multidetector row helical CT of the cervical spine was performed without administration of intravenous contrast. Coronal and sagittal reformations were obtained. Automated dose lowering techniques and/or adjustment according to patient size were utilized for this exam. Comparison: None available at the time of this dictation. FINDINGS: No acute fractures or subluxations are identified. Degenerative changes are seen in the visualized spine. The alignment is normal. Soft tissues are unremarkable. IMPRESSION: Degenerative changes without evidence of acute bony injury. ACT 112: Negative or not required by law. Electronically signed by: Lalo Guerrero M.D. 07/25/2023 2:[address] 07/25/23 14:17 CT head/brain wo con CLINICAL HISTORY: 83 years-old Male with fall, head injury. Acute head trauma status post fall TECHNIQUE: Multiple axial CT images of the head were obtained without contrast. A dose lowering technique was utilized adhering to the principles of ALARA. COMPARISON: CT cervical spine of same day FINDINGS: No acute intracranial hemorrhage, midline shift, intracranial mass, acute territorial ischemia or abnormal extra-axial collection. Involutional changes with chronic microvascular ischemic disease. Ventriculomegaly. Motion degraded exam. The calvarium is intact. Prior bilateral lens repair. Metallic density focus overlies the left mid humerus on the lumber racker radiograph. The paranasal sinuses, mastoid air cells, and middle ear cavities are clear. IMPRESSION: No acute intracranial abnormality. ACT 112: Negative or not required by law. The above report was generated using voice recognition software. It may contain grammatical, syntax or spelling errors. Electronically signed by: Abebe Cedillo M.D. 07/25/2023 3:08 PM Hip X-Ray 07/25/23 14:17 XR hip LT min 2V CLINICAL HISTORY: left hip injury, fall COMPARISON: None FINDINGS: Note is made of an acute displaced left femoral neck fracture. Fracture is displaced approximately 1.5 cm. There is mild left hip osteoarthritis. No additional acute fractures are identified. IMPRESSION: Acute displaced left femoral neck fracture. ACT 112: Negative or not required by law. Electronically signed by: Godwin Marquez M.D. 07/25/2023 3:16 PM Hip X-Ray 07/26/23 17:35 XR hip LT min 2V HISTORY: 83 years-old Male Post-Operative implant position left hip arthroplasty COMPARISON: 07/25/2023 TECHNIQUE: 2 views of the left hip FINDINGS: Left hip arthroplasty demonstrates satisfactory alignment. Lateral skin vel with expected postoperative soft tissue swelling and deep tissue air. No acute fracture or unexpected opaque foreign body. Arterial calcifications. IMPRESSION: Left hip arthroplasty with expected postoperative changes. ACT 112: Negative or not required by law. The above report was generated using voice recognition software. It may contain grammatical, syntax or spelling errors. Electronically signed by: Abebe Cedillo M.D. 07/26/2023 6:15 PM Hospital Course (1) Closed left hip fracture: Mechanical fall, no syncope/presyncope/cardiac arrhythmia contributing to his fall as tripped over wood trying to get for heating his home. CT head/cervical spine negative Xray w/ acute displaced LEFT femoral neck fracture. Ortho consulted, Dr Nettles s/p Left Hip Bipolar Arthroplasty-Cemented - Boone Nettles MD on 07/26. EBL 200cc WBC elevation suspect 2nd to steroids/stress from surgery/fracture and trended down on repeat. Remained afebrile without infectious symptoms HGb 11.6-- 11.2 on repeat and stable. acute blood loss anemia from surgery in setting of fracture/some dilution from IVF. No CP/SOB/lightheadedness or symptoms Vit D 35 - 1000IU daily and continued daily Pain control/bowel regimen as needed. +BM 07/29 DVT proph: SCDs, ASA 81mg BID 07/29: Therapy evals undertaken and initially recommended rehab however patient w/ improvement in ambulation and stable for dc to home with home health as initially wanting. Confirmed w/ CM patient wanting HHPT and arranged for start Tuesday Already has walker, w/ raised toilet seat. Outpt f/u ortho in 2 weeks for suture removal. Dressing changed 07/28 Patient w/ pain well controlled w/ tylenol and can continue as needed at discharge. (2) Hypercholesterolemia: Chronic and continued lipitor daily (3) Hyponatremia: Dip to 129 unclear cause, was asymptomatic, ?anesthesia. Not on any meds to cause such TSH wnl, urine studies no overt findings. Improved to 132 prior to discharge and improvement in PO intake (was only ordered clear liquid diet initially post op) No symptoms, can f/u with PCP if any issues. Discussed symptoms to monitor for, doesn't have any. W/ Na 132 glu was 161 and likely closer to normal. ?underlying pre-DM/DM -- denied Outpt f/u PCP Plan Discharged home w/ home health therapy. Total Time Total Time Spent Total Time Spent (In Minutes): 45 Discharge Plan Discharge Items Patient Disposition: Home - Home Health Services Reason For Visit: L HIP FRACTURE Discharge Diagnosis: Left hip replacement for fracture Activity: Per Instructions section Activity Comment: Follow/Obey hip precautions at all times. Weightbearing: Full weightbearing Weightbearing Comment: Weightbear as tolerated obeying hip precautions at all times. Non-emergency contact: Primary Care Provider and Surgeon Call non-emergency contact if: you have any medication questions, your symptoms worsen, your pain is not controlled, your pain is concerning for you and you have a fever Follow-up/Referrals: Diana Robin DO [Primary Care Provider] - Boone Nettles MD [Physician] - (Orthopedic follow-up 2-3 weeks from surgery date) Diet: Heart Healthy Naren Attending Provider Instructions: You have been hospitalized for a fall and sustained a hip fracture. Orthopedics were consulted and you underwent hip arthroplasty with Dr Nettles and did well. Thankfully, as you had wished for, you did well enough with continued therapy and time while in the hospital and working on rehab at [facility] to meet qualifications to be felt safe to return home with home health therapy. Case management has arranged home health therapy to continue at discharge. Maintain hip precautions as outlined by orthopedics. You can continue Tylenol every 8 hours as needed for pain and haven't required anything stronger than that in the past day and can continue this at discharge. You may benefit from just taking this every 8 hours for the next day or so and then decrease as needed for any ongoing pain. You should continue aspirin 81mg twice daily to prevent blood clots. This is for 6 weeks. You moved your bowels prior to discharge but if having any constipation issues at home can utilize over the counter stool softeners/stimulants like miralax or colace as needed. You should have follow up with orthopedics, Dr Nettles, in two weeks to monitor your status after surgery. Please follow up with primary care after discharge this upcoming week to monitor your progress after hospitalization. Please return to the ER with any worsening/uncontrolled pain, swelling/redness or drainage from your incision site, chest pain/shortness of breath, or for any other symptoms concerning for you. It has been a pleasure being a part of the medical team providing for you while you have been in the hospital. Take care! Naren Still Operator Batch Or Continuous Provider Instructions: ACTIVITY RECOMMENDATIONS: Physical Therapy: * Aggressive physical therapy is not usually needed. You will learn to take care of yourself safely and walk. * Follow the "Hip Precautions Instructions." * In some cases, the social services at the hospital will arrange to have a therapist come to your house for the first couple of weeks to help you learn these skills. * You need to practice on your own or with the help of a family member as yenny zuñiga. * When you learn these skills, most of the therapy can be done on your own. Home Exercise: * You were shown a series of exercises in the hospital. Do these exercises thr ee to four times each day including the exercises you were shown in physical therapy. Walking: * Get up and walk several times each day. For the first four weeks, try not to stand or walk for more than one hour at a time. If you do stand or walk for more than one hour, you will not hurt anything, but your leg will likely swell. * As you feel comfortable, you may change from the walker or crutches to a cane and then to independent walking. MEDICATIONS: New Medicine: * You will likely be taking one or more of these medicines: 1. Tramadol - Take, as directed, when you need it, every six hours to control your pain. 2. Aspirin - Thins your blood to lessen the chance of forming a blood clot. * The most common side effects of pain medicine and iron are nausea and constipation. If nausea or constipation is too much of a problem or if you have any questions about your new medicines or doses, call [facility] at . We will try to help you manage these issues. "VERY IMPORTANT TO READ AND REVIEW" Pain: * The immediate post-operative period after hip replacement surgery is often quite painful. * You are given a prescription for pain medicine. You should take it, as directed, when you need it, especially before physical therapy and before going to bed. Pain that interferes with sleep is very common and can last several months. * You will likely need pain medicine for the first two to four weeks. It will not stop all of the pain. The pain will lessen and as you feel better, you may change to milder pain medicine such as Tylenol. * The most common side effects of pain medicine are nausea and constipation, so don't take more than you need. SPECIAL CARE INSTRUCTIONS: TEDs/Elastic Stockings: * The white elastic stockings help limit swelling and prevent blood clots from forming in your legs. The more you wear them, the more they work. * Wear them for six weeks. Incision Site Care: * Remove dressing postoperative day 2 and then shower. Keep direct shower pressure off the incision site. * After showering, cover vel with dry gauze and change daily or more frequently if the dressing is getting saturated with drainage. * May completely stop using bandage if wound is dry and no drainage * Vel are removed between 2 and 3 weeks post-op. If your follow-up appointment is made before 2 weeks, please have your appointment re- scheduled. It is too early to remove the vel. Prevention of Infection: * Take antibiotics one hour before any dental cleaning, dental work, urological procedure, gastrointestinal procedure or any invasive surgery in order to prevent your new joint from getting infected. * You may get the antibiotics from the doctor performing the procedure or you may call our office at before and we will call in a presc ription to the pharmacy of your choice. Things to Watch For: * Drainage from the incision site that occurs more than one week after your surgery. * Severely increased leg pain or swelling. * Increased redness at the incision site. * Fever above 102 degrees Fahrenheit. * Unusual chest pain or shortness of breath. * Unusual pain or burning with urination. Call [facility] at with any of the above problems or if you have any questions about your medicines or recovery. FOLLOW UP VISIT: Make an appointment to see your doctor for approximately two weeks after surgery for a progress check and staple removal by calling the office at . Pending Studies at Discharge: No Stand-Alone Forms: My [facility], Smoking Cessation Medications and DC Order Prescriptions: New aspirin 81 mg Tablet,Delayed Release (Dr/Ec) 81 mg PO BID 42 Days Qty: 84 0RF cholecalciferol (vitamin D3) 25 mcg (1,000 unit) Capsule 1,000 unit PO QAM Qty: 30 0RF acetaminophen [Tylenol Extra Strength] 500 mg Tablet 1,000 mg PO Q8H PRN (Reason: fever or pain) Qty: 0 0RF Continued tadalafil 20 mg tablet 20 mg PO DAILY PRN (Reason: sexual activity) Qty: 10 5RF Rx Instructions: administer approximately 30min before sexual activity; do not use more than 1 dose per 24hrs simvastatin 80 mg tablet 80 mg PO DAILY Discharge Orders: Discharge Order (Routine); Ordered 07/29/23 Ordered By: Tamy Cruz Admission Data Admit Date/Time: 07/25/23 16:29 Attending Provider: Britta Reveles Admit Provider: Isaias Rubio Primary Care Provider: Diana Robin Other Providers: Boone Nettles; [facility] Coding Level of Care Code 76064 INP/OBS DISCH >30 MIN Diagnoses Closed fracture of left hip, initial encounter S72.002A Encounter type: initial encounter Hypercholesterolemia E78.00 Hyponatremia E87.1
== END 2023-07-29 15:22 | disposition home health service (06) | DRG 522 ==
LOC: ED 13:56 → SUATTDRO 16:29 → 3W 16:29
DX: Z66 Do not resuscitate; E78.5 Hyperlipidemia, unspecified; D62 Acute posthemorrhagic anemia; W18.09XA Striking against other object with subsequent fall, initial encounter; Y92.017 Garden or yard in single-family (private) house as the place of occurrence of the external cause; S72.142A Displaced intertrochanteric fracture of left femur, initial encounter for closed fracture; Z86.16 Personal history of COVID-19; E78.00 Pure hypercholesterolemia, unspecified; E87.1 Hypo-osmolality and hyponatremia